=== PATIENT | female | born 1990 | race Caucasian/White ===

== ENCOUNTER → 2017-03-29 | Outpatient (CLI) | payer BC ==
[2017-03-29 14:30] LABS: Basophils # (A) 0.1 k/uL (0-0.2); Basophils % (A) 1 %; CH 22.4; CHCM 29.9; Eosinophils # (A) 0.3 k/uL (0-0.7); Eosinophils % (A) 3 %; HDW 2.75; HGB 12.1 gm/dL (11.4-16.0); Hypochromasia Marked; Luc # (Auto) 0.25; Luc % (Auto) 2; Lymphocytes # (A) 2.8 k/uL (1.0-4.8); Lymphocytes % (A) 26 %; MCH 22.6 pg (25.0-35.0); MCHC 30.2 g/dL (31.0-37.0); Microcytosis Slight; Monocytes # (A) 0.5 k/uL (0-1.0); Monocytes % (A) 5 %; Neutrophils # (A) 6.9 k/uL (1.3-7.7); Neutrophils % (A) 64 %; RBC 5.34 m/uL (3.80-5.40); RDW 13.8 % (11.5-15.5); WBC 10.7 k/uL (3.8-10.6); WBC (Perox) 11.22
[2017-03-29 14:31] LABS: ALT 31 U/L (9-52); AST 16 U/L (14-36); Alkaline Phosphatase 103 U/L (38-126); Anion Gap 9 mmol/L; Blood Urea Nitrogen 9 mg/dL (7-17); Calcium 9.2 mg/dL (8.4-10.2); Carbon Dioxide 25 mmol/L (22-30); Chloride 106 mmol/L (98-107); Glucose 102 mg/dL (74-99); Non-African American GFR(MDRD) >60 (>60 ml/min/1.73 sqM); Sodium 140 mmol/L (137-145); Total Bilirubin 0.2 mg/dL (0.2-1.3); Total Protein 7.6 g/dL (6.3-8.2)
== END | disposition home or self-care (01) ==
LOC: LABWHC1 13:49
PROVIDERS: ATTEND Family Medicine
DX: R19.7 Diarrhea, unspecified (principal)
CPT/HCPCS: 36415; 80053; 85025; 87045; 87046; 87324; 87328; 87329

== ENCOUNTER → 2017-05-03 | Outpatient (CLI) | payer BC ==
[2017-05-06 09:38] LABS: Lyme IgG/IgM 0.1 Index
== END | disposition home or self-care (01) ==
LOC: LABWHC1 10:43
PROVIDERS: ATTEND Otolaryngology
DX: M54.2 Cervicalgia (principal)
CPT/HCPCS: 36415; 85652; 86038; 86618

== ENCOUNTER → 2017-05-17 | Outpatient (CLI) | payer BC | END | disposition home or self-care (01) | LOC: LABWHC1 10:08 | PROVIDERS: ATTEND Family Medicine | DX: E66.9 Obesity, unspecified (principal) | CPT/HCPCS: 36415; 84443 ==

== ENCOUNTER 2017-08-02 20:37 | Emergency (ER) | payer BC ==
[2017-08-02 20:43] VITALS: RESP 18
[2017-08-02] MEDS ORDERED: SODIUM CHLORIDE 0.9% 1,000 ML IV STA (21:00)
--- NOTE | 2017-08-02 21:13 | ED ---
Chest Pain HPI - General Chief Complaint: Chest Pain Stated Complaint: chest pain Time Seen by Provider: 08/02/17 20:44 Source: patient, RN notes reviewed Mode of arrival: ambulatory Limitations: no limitations - History of Present Illness Initial Comments: This is a 27-year-old female who presents to the emergency department with chief complaint of chest pain. Patient states that she developed left-sided chest pain approximately 3 days ago. She describes the pain as constant with radiation to her neck. She states that she has been waking up at night with cold sweats. She also reports that over the last month she has had intermittent headaches. She states that she has also had forgetfulness while speaking. Mother states she sometimes has difficulty getting words out. Mother at bedside states the patient has received labs and a workup for Lyme's disease approximately 6 months ago by her primary care provider and everything came back negative. Patient denies any recent travel, hospitalizations or surgeries. She does state that within the last year she has started taking oral contraceptives. Patient denies fevers or chills, shortness of breath, abdominal pain, nausea or vomiting, diarrhea or constipation, dysuria or hematuria. - Related Data Home Medications Medication Instructions Recorded Confirmed Albuterol Sulfate [Proair Hfa] 1 - 2 puff INHALATION RT-Q6H PRN 12/03/15 Fluticasone Nasal [place] [Flonase 1 spray EA NOSTRIL HS PRN 08/02/17 08/02/17 Nasal [place]] Loratadine [Claritin] 10 mg PO HS PRN 08/02/17 08/02/17 [place] 28 1 tab PO HS 08/02/17 08/02/17 Allergies Allergy/AdvReac Type Severity Reaction Status Date / Time Sulfa (Sulfonamide Allergy Unknown Rash/Hives Verified 08/02/17 21:02 Antibiotics) Review of Systems ROS Statement: Those systems with pertinent positive or pertinent negative responses have been documented in the HPI. ROS Other: All systems not noted in ROS Statement are negative. EKG Findings - EKG Comments: EKG Findings:: 20:49:40. Sinus tachycardia, RSR' or QR pattern in V1 suggests right ventricular conduction delay. Moderate voltage criteria for LVH, may be normal variant. Ventricular rate 111 bpm, DE interval 130, QRS duration 92, QT/ QTC 340/462 Past Medical History Past Medical History: GERD/Reflux Additional Past Medical History / Comment(s): Anemia History of Any Multi-Drug Resistant Organisms: MRSA Date of last positivie culture/infection: 2011 MDRO Source:: throat Past Surgical History: Tonsillectomy Additional Past Surgical History / Comment(s): cyst right wrist Past Psychological History: No Psychological Hx Reported Smoking Status: Current every day smoker Past Alcohol Use History: Occasional Past Drug Use History: None Reported General Exam - General Exam Comments Initial Comments: General: Awake and alert, well-developed; in no apparent distress. HEENT: Head atraumatic, normocephalic. Pupils are equal, round and reactive to light. Extraocular movements intact. Oropharynx moist without erythema or exudate. Neck: Supple. Normal ROM. Cardiovascular: Regular rhythm. Sinus tachycardia. No murmurs, rubs or gallops. Chest symmetrical. Respiratory: Lungs clear to auscultation bilaterally. No wheezes, rales or rhonchi. Normal respiratory effort with no use of accessory muscles. Abdomen: Soft, non-tender, non-distended. No rigidity, rebound or guarding. Normal bowel sounds in all 4 quadrants. Musculoskeletal: Normal ROM, no tenderness, strength 5/5 bilateral upper and lower extremities. Ambulating normally. Skin: [place], warm and dry without rashes or lesions. Neurological: Alert and oriented x3. CN II-XII grossly intact. Speech is fluent and answers are appropriate. No focal neuro deficits. Psychiatric: Normal mood and affect. No overt signs of depression or anxiety noted. Limitations: no limitations Course Vital Signs 08/02/17 08/02/17 20:38 21:43 Temperature 98.3 F 98.2 F Pulse Rate 117 H 102 H Respiratory 18 18 Rate Blood Pressure 142/75 144/65 O2 Sat by Pulse 99 100 Oximetry Chest Pain MDM - MDM This is a 27-year-old female who presents to the emergency department with chief complaint of chest pain for the past 3 days. Patient describes the pain is constant and left-sided with radiation to her neck. CBC, CMP and UA were unremarkable. Patient did have an elevated d-dimer. A CT angio of the chest was obtained and revealed no evidence for a pulmonary embolism. Chest x-ray revealed no acute cardiopulmonary processes. Patient's vital signs are stable and she is in no acute distress. Findings were discussed with her and mother at bedside. Patient states that she has had a recent increase in stress and anxiety in her life. She states that her father recently from cancer and bought his house. Patient will be discharged home at this time. She is in agreement with plan and voices understanding. All questions were answered. Chest x-ray impression: No acute cardiopulmonary process. CT Angio chest impression: No evidence of pulmonary embolism. Cardiomegaly. Disposition Clinical Impression: Atypical chest pain Disposition: HOME SELF-CARE Condition: Good Instructions: Noncardiac Chest Pain (ED), Chest Pain (ED) Additional Instructions: Please follow up with primary care provider within 1-2 days. Return to emergency department if symptoms should worsen or any concerns arise. Referrals: Jorge Luis Bains MD [Primary Care Provider] - 1-2 days Time of Disposition: 22:57
[2017-08-02 21:30] LABS: Basophils # (A) 0.1 k/uL (0-0.2); Basophils % (A) 1 %; Eosinophils # (A) 0.2 k/uL (0-0.7); Eosinophils % (A) 2 %; HCT 37.1 % (34.0-46.0); HGB 11.6 gm/dL (11.4-16.0); Hypochromasia Slight; Lymphocytes % (A) 27 %; MCH 22.4 pg (25.0-35.0); MCHC 31.2 g/dL (31.0-37.0); MCV 71.7 fL (80.0-100.0); Mean Platelet Volume 7.1; Microcytosis Moderate; Monocytes # (A) 0.4 k/uL (0-1.0); Monocytes % (A) 4 %; Neutrophils # (A) 7.3 k/uL (1.3-7.7); Neutrophils % (A) 65 %; Platelet Count 270 k/uL (150-450); RBC 5.17 m/uL (3.80-5.40); RDW 14.8 % (11.5-15.5); WBC 11.1 k/uL (3.8-10.6)
[2017-08-02 21:42] LABS: D-Dimer 1.03 mg/L FEU (<0.60); INR 0.9 (<1.2); Prothrombin Time 9.4 sec (9.0-12.0)
[2017-08-02 21:47] LABS: ALT 20 U/L (9-52); AST 17 U/L (14-36); Albumin 3.6 g/dL (3.5-5.0); Alkaline Phosphatase 87 U/L (38-126); Anion Gap 11 mmol/L; Blood Urea Nitrogen 12 mg/dL (7-17); Carbon Dioxide 26 mmol/L (22-30); Chloride 104 mmol/L (98-107); Glucose 97 mg/dL (74-99); Magnesium 1.7 mg/dL (1.6-2.3); Potassium 4.2 mmol/L (3.5-5.1); Sodium 141 mmol/L (137-145); Total Bilirubin 0.2 mg/dL (0.2-1.3); Total Protein 6.9 g/dL (6.3-8.2)
[2017-08-02] MEDS ORDERED: RX INFO: IV CONTRAST WAS GIVEN 1 EACH MISC MISCELLANE PRN (21:48)
--- NOTE | 2017-08-02 22:13 | XR ---
EXAMINATION TYPE: XR chest 2V DATE OF EXAM: 08/02/2017 COMPARISON: 12/04/2015 HISTORY: Chest pain for 3 days TECHNIQUE: Frontal and lateral views of the chest are obtained. FINDINGS: There is no focal air space opacity, pleural effusion, or pneumothorax seen. The cardiac silhouette size is within normal limits. The osseous structures are intact. IMPRESSION: No acute cardiopulmonary process.
--- NOTE | 2017-08-02 22:23 | CT ---
EXAMINATION TYPE: CT angio chest DATE OF EXAM: 08/02/2017 10:12 PM COMPARISON: NONE HISTORY: Chest pain and difficulty breathing x [address] DLP: 502.6 mGycm Automated exposure control for dose reduction was used. CONTRAST: CTA scan of the thorax is performed with IV Contrast, patient injected with 73 mL of Omnipaque 350, p ulmonary embolism protocol. There are 3-D post processed images.. FINDINGS: Exam is limited slightly by the patient size. There is no pericardial effusion. There is no pleural e ffusion. Heart appears slightly enlarged. There is no evidence of a primary mass. The lungs are clear of infiltrate. There is normal contrast opacification of the pulmonary arteries. I see no filling defects. There is no mediastinal adenopathy. There are no hilar masses. The bony thorax is intact. IMPRESSION: NO EVIDENCE OF PULMONARY EMBOLISM. CARDIOMEGALY.
[2017-08-02 23:33] VITALS: BP 124/58; PULSE 82; TEMP 97.8
== END 2017-08-02 23:31 | disposition home or self-care (01) ==
LOC: EC 20:37
DX: R07.89 Other chest pain (principal); M54.2 Cervicalgia; R51 Headache; F17.200 Nicotine dependence, unspecified, uncomplicated; Z79.3 Long term (current) use of hormonal contraceptives; Z88.2 Allergy status to sulfonamides; Z86.14 Personal history of Methicillin resistant Staphylococcus aureus infection
CPT/HCPCS: 36415; 93005; 85379; 80053; 83735; 84484; 85025; 85610; 85730; 71046; 71275; 99285; 96360; Q9967

== ENCOUNTER → 2018-01-31 | Outpatient (CLI) | payer OTHER ==
--- NOTE | 2018-01-31 10:17 | US ---
EXAMINATION TYPE: US pelvis complete transvag DATE OF EXAM: 01/31/2018 COMPARISON: NONE CLINICAL HISTORY: Pelvic pain R10.2. Midline to LLQ pain, , patient stopped control, large habitus TECHNIQUE: TA/TV. Transabdominal sonographic images of the pelvis were acquired. Transvaginal sono graphic images were medically necessary to better assess the following anatomy: both ovaries Date of LMP: 01/22/2018 EXAM MEASUREMENTS: Uterus: 7.8 x 4.0 x 3.8 cm Endometrial Stripe: 0.6 cm Right Ovary: 2.7 x 2.1 x 1.7 cm Left Ovary: 2.4 x 1.9 x 2.1 cm 1. Uterus: Anteverted wnl 2. Endometrium: wnl 3. Right Ovary: wnl, only seen transabdominally 4. Left Ovary: wnl, only seen transabdominally 5. Bilateral Adnexa: wnl 6. Posterior cul-de-sac: wnl IMPRESSION: 1. No acute process.
== END ==
LOC: RADUSWWP 09:28
PROVIDERS: ATTEND Obstetrics & Gynecology
DX: R10.2 Pelvic and perineal pain (principal)
CPT/HCPCS: 76830; 76856

== ENCOUNTER → 2019-01-09 | Outpatient (CLI) | payer OTHER ==
--- NOTE | 2019-01-09 09:57 | MM ---
Reason for exam: clinical finding. Baseline mammogram. History: Took hormonal contraceptives beginning at age 16. Physical Findings: Nurse Summary: 1.5cm nodule in the right breast at 11 o'clock (nurse maddison). MG 3D Diag Mammo W/Cad BRUNA Bilateral CC and MLO view(s) were taken. The breast tissue is heterogeneously dense. This may lower the sensitivity of mammography. There is a 2.0cm right upper outer quadrant oval circumscribed middle depth mass corresponding to the palpable marker on ultrasound, this appears as a solid mass. No suspicious abnormality on the left. These results were verbally communicated with the patient and result sheet given to the patient on 01/09/19. ASSESSMENT: Suspicious, BI-RAD 4 RECOMMENDATION: Ultrasound core biopsy of the right breast. Called with mammographic findings and has scheduled an appointment for the patient for 02/13/19 at 1:[address] Ruby. Biopsy scheduled for 02/06/19 at 12:20. PRELIMINARY REPORT CALLED AND FAXED TO DR. RUBY ON 01/09/19.
--- NOTE | 2019-01-09 09:58 | USB ---
Reason for exam: clinical finding. History: Took hormonal contraceptives beginning at age 16. US Breast RT Right complete breast ultrasound includes all four quadrants, the retroareolar region and axilla. Finding demonstrates a 2.0 x 2.4 x 1.6cm solid, hypoechoic, vascular lesion at 12 o'clock for which a biopsy is recommended, correlates with mammogram. These results were verbally communicated with the patient and result sheet given to the patient on 01/09/19. ASSESSMENT: Suspicious, BI-RAD 4 RECOMMENDATION: Ultrasound core biopsy of the right breast. Called with mammographic findings and has scheduled an appointment for the patient for 02/13/19 at 1:[address] Ruby. Biopsy scheduled for 02/06/19 at 12:20. PRELIMINARY REPORT CALLED AND FAXED TO DR. RUBY ON 01/09/19.
== END | disposition home or self-care (01) ==
LOC: RADMAMWWP 08:09
PROVIDERS: ATTEND Surgery
DX: R92.8 Other abnormal and inconclusive findings on diagnostic imaging of breast (principal)
CPT/HCPCS: 77062; 77066

== ENCOUNTER → 2019-02-06 | Day surgery (SDC) | payer OTHER ==
[2019-02-06 12:17] VITALS: RESP 16; BMI 51.9
[2019-02-06 13:46] VITALS: BP 131/82; PULSE 76; TEMP 97.8
--- NOTE | 2019-02-06 17:23 | USB ---
EXAMINATION TYPE: US biopsy breast VAD RT DATE OF EXAM: 02/06/2019 CLINICAL HISTORY: 28-year-old female with palpable abnormality, R92.8 Abnormal Mammogram. TECHNIQUE: Ultrasound guided core biopsy of right breast. COMPARISON: 01/09/2019 FINDINGS: The procedure of ultrasound guided core biopsy was explained to the patient. Benefits, alternatives, and risks were discussed. An informed consent was then obtained. The patient was placed in supine positioning for imaging and for the procedure. The overlying skin was prepped and draped in usual sterile fashion. Lidocaine was used as anesthetic into the skin followed by lidocaine/epinephrine into the subcutaneous tissue up to and around the area of concern in the 12:00 right breast. Under ultrasound guidance, a 13-gauge vacuum-assisted mammotome biopsy gun was used to obtain 7 core samples. Following this, a wing clip was left in lesion. The patient tolerated the procedure well without any immediate complication. The patient was kept in the radiology department for short stay after the procedure and then discharged home in stable condition. Given the patient's age, size of the lesion, and clear visualization on mammogram, post biopsy mammogram was deferred. IMPRESSION: Successful, uncomplicated ultrasound guided core biopsy of the palpable 12:00 right breast mass. Fibroadenoma is suspected. Full pathology results to follow. If results are benign, excision can be considered if symptomatic. Pathology Results: Benign RIGHT BREAST, 12:00, ULTRASOUND GUIDED CORE BIOPSY: Benign fibroepithelial lesion with a prominent stromal cellular component. See note. Recommendation Surgical consult, repeat procedure of the right breast. Excision per pathology is recommended phylloides versus fibroadenoma. [facility]
== END ==
LOC: RADUSWWP 11:50
PROVIDERS: ATTEND Surgery
DX: N64.89 Other specified disorders of breast (principal)
CPT/HCPCS: 88305; 19083; A4648

== ENCOUNTER 2019-02-16 06:19 | Day surgery (SDC) | payer OTHER ==
[2019-02-14 18:13] VITALS: BMI 53.2
[~2019-02-16 06:19] MED LIST: DEXAMETHASONE SOD PHOSPHATE 10 MG/ML 1 ML VIAL IV ONE; FAMOTIDINE 20 MG/2 ML VIAL IV PRN; HEPARIN SODIUM,PORCINE 5,000 UNIT/ML 1 ML VIAL SQ ONE; LACTATED RINGERS 1,000 ML IV SCH; ONDANSETRON 4 MG/2 ML VIAL IVP ONE; ONDANSETRON 4 MG/2 ML VIAL IVP PRN; SCOPOLAMINE 1.5MG/72HR PATCH TRANSDERM ONE
[2019-02-16 07:10] LABS: Anisocytosis Slight; Basophils # (A) 0.1 k/uL (0-0.2); Basophils % (A) 1 %; Eosinophils # (A) 0.3 k/uL (0-0.7); Eosinophils % (A) 3 %; HCT 36.4 % (34.0-46.0); HGB 10.7 gm/dL (11.4-16.0); Hypochromasia Marked; Lymphocytes # (A) 3.1 k/uL (1.0-4.8); Lymphocytes % (A) 27 %; MCH 20.4 pg (25.0-35.0); MCHC 29.3 g/dL (31.0-37.0); MCV 69.8 fL (80.0-100.0); Mean Platelet Volume 7.6; Microcytosis Marked; Monocytes # (A) 0.5 k/uL (0-1.0); Monocytes % (A) 4 %; Neutrophils % (A) 62 %; Platelet Count 329 k/uL (150-450); RBC 5.22 m/uL (3.80-5.40); RDW 16.3 % (11.5-15.5); WBC 11.2 k/uL (3.8-10.6)
[2019-02-16] MEDS ORDERED: GLYCOPYRROLATE 0.2 MG/ML 2 ML VIAL ONE (07:51)
[2019-02-16] MEDS ORDERED: PROPOFOL 10 MG/ML 20 ML VIAL IV ONE (07:51)
[2019-02-16] MEDS ORDERED: LIDOCAINE 1% INJ 10MG/ML (20 ML MDV) ONE (07:51)
[2019-02-16] MEDS ORDERED: KETOROLAC 30 MG/ML 1 ML VIAL ONE (07:51)
[2019-02-16] MEDS ORDERED: ROCURONIUM BROMIDE 10 MG/ML 10 ML VIAL IV ONE (07:51)
[2019-02-16] MEDS ORDERED: NEOSTIGMINE 1 MG/ML 10 ML VIAL ONE (07:51)
[2019-02-16] MEDS ORDERED: fentaNYL (PF) 50 MCG/ML 2 ML AMP ONE (07:51)
[2019-02-16] MEDS ORDERED: MIDAZOLAM 2 MG/2 ML VIAL ONE (07:51)
[2019-02-16] MEDS ORDERED: SUCCINYLCHOLINE CHLORIDE VIAL 200 MG/10 ML VIAL IV ONE (07:51)
--- NOTE | 2019-02-16 07:56 | P.GSHP ---
History of Present Illness H&P Date: 02/16/19 Chief Complaint: Right breast mass This a 19-year-old female who previously diagnosed right breast mass. Patient presents today for excisional biopsy. Past Medical History Past Medical History: Asthma, Blood Disorder, GERD/Reflux Additional Past Medical History / Comment(s): Exercise Induced Asthma 2009. An emia. Rt breast mass, tender from recent biopsy. History of Any Multi-Drug Resistant Organisms: MRSA Date of last positivie culture/infection: 2011 MDRO Source:: throat Past Surgical History: Orthopedic Surgery, Tonsillectomy Additional Past Surgical History / Comment(s): Exc cyst right wrist. Past Anesthesia/Blood Transfusion Reactions: No Reported Reaction Smoking Status: Current some day smoker - Past Family History Father Family Medical History: Cancer, Deep Vein Thrombosis (DVT) Additional Family Medical History / Comment(s): Renal CA Medications and Allergies Home Medications Medication Instructions Recorded Confirmed Type Albuterol Sulfate [Proair Hfa] 1 - 2 puff INHALATION RT-Q6H PRN 12/03/15 02/16/19 History Fluticasone Nasal [place] [Flonase 1 spray EA NOSTRIL HS PRN 08/02/17 02/14/19 History Nasal [place]] Loratadine [Claritin] 10 mg PO HS PRN 08/02/17 02/14/19 History Cholecalciferol (Vitamin D3) 2,000 unit PO HS 01/30/19 02/14/19 History [Vitamin D3] Ferrous Sulfate [Feosol] 325 mg PO HS 01/30/19 02/14/19 History Multivitamins, Thera [Multivitamin 1 tab PO HS 01/30/19 02/14/19 History (formulary)] Calcium Carbonate [Tums] 500 - 1,000 mg PO QID PRN 02/14/19 02/14/19 History Ibuprofen [Motrin Ib] 400 mg PO Q8H PRN 02/14/19 02/14/19 History Melatonin 3 mg PO HS PRN 02/14/19 02/14/19 History Allergies Allergy/AdvReac Type Severity Reaction Status Date / Time Sulfa (Sulfonamide Allergy Unknown Rash/Hives Verified 02/16/19 06:48 Antibiotics) Surgical - Exam Vital Signs Temp Pulse Resp BP Pulse Ox 97.8 F 84 16 124/60 99 02/16/19 06:50 02/16/19 06:50 02/16/19 06:50 02/16/19 06:50 02/16/19 06:50 - General well developed, well nourished, no distress - Eyes PERRL - ENT normal pinna - Neck no masses - Respiratory normal expansion - Cardiovascular Rhythm: regular - Abdomen Abdomen: soft, non tender 2 cm right breast mass located 12 o'clock position. Results - Labs 02/16/19 06:52 Abnormal Lab Results - Last 24 Hours (Table) 02/16/19 Range/Units 06:52 WBC 11.2 H (3.8-10.6) k/uL Hgb 10.7 L (11.4-16.0) gm/dL MCV 69.8 L (80.0-100.0) fL MCH 20.4 L (25.0-35.0) pg MCHC 29.3 L (31.0-37.0) g/dL RDW 16.3 H (11.5-15.5) % Assessment and Plan Assessment: Right breast mass. We'll perform excisional biopsy.
[2019-02-16] MEDS ORDERED: LIDOCAINE 1%-EPI 1:100,000 20 ML VIAL SQ ONE ×2 (08:16→08:35)
[2019-02-16] MEDS ORDERED: LACTATED RINGERS 1,000 ML IV ONE (08:17)
[2019-02-16] MEDS: HYDROmorphone 0.5 MG/0.5 ML SYRINGE IVP PRN ×2 (08:56→09:40)
[2019-02-16 08:57] VITALS: TEMP 97.6
[2019-02-16] MEDS ORDERED: diphenhydrAMINE 50 MG/ML 1 ML VIAL IVP ONE (09:04)
[2019-02-16 09:20] VITALS: RESP 16
--- NOTE | 2019-02-16 09:25 | P.OP ---
Date of Procedure: 02/16/19 Preoperative Diagnosis: Right breast mass Postoperative Diagnosis: Defer to pathology Procedure(s) Performed: Excision of right breast mass Anesthesia: ALEXA Surgeon: Morales Ruby Estimated Blood Loss (ml): 5 Condition: stable Disposition: PACU Description of Procedure: The patient was placed on the operative table in supine position she received general anesthesia. Her right breast was prepped and draped usual sterile fashion. The breasts had been previously marked in the preoperative hold area. The skin was anesthetized 1% local Xylocaine. A 15 blade was used to incise the skin. Using blunt and sharp dissection with cautery and the Harmonic scissors the breast mass was excised. The Bovie was used for hemostasis hemostasis. The clip community development aide was used to place clips and the biopsy site. The skin was closed interrupted 3-0 Monocryl suture. Dermabond was applied. Patient top she will was sent to recovery room stable condition.
[2019-02-16] MEDS ORDERED: HYDROcodone/APAP 5-325MG 1 EACH TAB PO ONE (10:38)
[2019-02-16 10:40] VITALS: BP 105/60; PULSE 63
== END 2019-02-16 11:35 | disposition home or self-care (01) ==
LOC: OR 06:19
PROVIDERS: ATTEND Surgery
DX: D24.1 Benign neoplasm of right breast (principal); N63.10 Unspecified lump in the right breast, unspecified quadrant; J45.990 Exercise induced bronchospasm; K21.9 Gastro-esophageal reflux disease without esophagitis; F17.200 Nicotine dependence, unspecified, uncomplicated; Z86.14 Personal history of Methicillin resistant Staphylococcus aureus infection; Z80.51 Family history of malignant neoplasm of kidney; Z84.89 Family history of other specified conditions; Z79.899 Other long term (current) drug therapy; Z88.2 Allergy status to sulfonamides
CPT/HCPCS: 81025; 88305; 85025; 19120; J2250; J0330; J1200; J1644; J1100; J2710; J0690; J2405; J2001; J3010; J1885; J2704; J1170

== ENCOUNTER → 2019-02-18 | Outpatient (CLI) | payer OTHER ==
[2019-02-18 11:37] LABS: Anisocytosis Slight; HCT 32.9 % (34.0-46.0); HGB 9.4 gm/dL (11.4-16.0); Hypochromasia Marked; MCH 20.5 pg (25.0-35.0); MCHC 28.6 g/dL (31.0-37.0); MCV 71.6 fL (80.0-100.0); Mean Platelet Volume 7.2; Microcytosis Moderate; Platelet Count 262 k/uL (150-450); RDW 16.4 % (11.5-15.5); WBC 10.1 k/uL (3.8-10.6)
[2019-02-18 11:49] LABS: D-Dimer 0.98 mg/L FEU (<0.60); INR 0.9 (<1.2); Prothrombin Time 9.9 sec (9.0-12.0)
[2019-02-18 11:55] LABS: ALT 20 U/L (9-52); AST 17 U/L (14-36); African American GFR (CKD) >90 (>60 ml/min/1.73 sqM); Albumin 3.7 g/dL (3.5-5.0); Albumin/Globulin Ratio 1.1; Alkaline Phosphatase 74 U/L (38-126); Anion Gap 10 mmol/L; Blood Urea Nitrogen 13 mg/dL (7-17); Calcium 8.6 mg/dL (8.4-10.2); Carbon Dioxide 26 mmol/L (22-30); Chloride 105 mmol/L (98-107); Globulin 3.5 g/dL; Glucose 77 mg/dL (74-99); Potassium 3.8 mmol/L (3.5-5.1); Sodium 141 mmol/L (137-145); Total Bilirubin 0.3 mg/dL (0.2-1.3); Total Protein 7.2 g/dL (6.3-8.2)
[2019-02-18 13:22] LABS: Erythrocyte Sedimentation Rate 34 mm/hr (0-20)
== END | disposition home or self-care (01) ==
LOC: LABMAIN 11:11
PROVIDERS: ATTEND Family Medicine
DX: H11.33 Conjunctival hemorrhage, bilateral (principal); R07.9 Chest pain, unspecified; Z79.01 Long term (current) use of anticoagulants
CPT/HCPCS: 36415; 80053; 85027; 85379; 85610; 85652

== ENCOUNTER 2019-02-20 15:44 | Emergency (ER) | payer OTHER ==
[2019-02-20 16:15] VITALS: BP 138/88
--- NOTE | 2019-02-20 17:49 | ED ---
General Adult HPI - General Chief complaint: Headache Stated complaint: H/A, PRESSURE LS, BLOOD IN EYE SENT BY DR COLUNGA Time Seen by Provider: 02/20/19 17:13 Source: patient Mode of arrival: ambulatory Limitations: no limitations - History of Present Illness Initial comments: Patient is a 28-year-old female presenting to emergency Department with multiple chief complaints. Patient reports she had a lump removal procedure on Tuesday and after discharge she reports that she went to sleep, woke up with a headache and bilateral hyphema. Patient reports she went to the in home sales consultant who determined she had elevated pressure in the left eye and gave her eyedrops. Patient denies blurry vision at this time. However, patient reports she developed left-sided chest pain without any radiation. Patient reports the pain is exacerbated with full inhalation. Patient denies any abdominal but does report back pain that seems to be exacerbated with specific anatomical positions. - Related Data Home Medications Medication Instructions Recorded Confirmed Albuterol Sulfate [Proair Hfa] 1 - 2 puff INHALATION RT-Q6H PRN 12/03/15 02/20/19 Fluticasone Nasal [place] [Flonase 1 spray EA NOSTRIL HS PRN 08/02/17 02/20/19 Nasal [place]] Loratadine [Claritin] 10 mg PO HS PRN 08/02/17 02/20/19 Cholecalciferol (Vitamin D3) 2,000 unit PO HS 01/30/19 02/20/19 [Vitamin D3] Ferrous Sulfate [Feosol] 325 mg PO HS 01/30/19 02/20/19 Multivitamins, Thera [Multivitamin 1 tab PO HS 01/30/19 02/20/19 (formulary)] Calcium Carbonate [Tums] 500 - 1,000 mg PO QID PRN 02/14/19 02/20/19 Ibuprofen [Motrin Ib] 600 mg PO Q8H PRN 02/14/19 02/20/19 Melatonin 3 mg PO HS PRN 02/14/19 02/20/19 Docusate [Colace] 100 mg PO BID PRN 02/20/19 02/20/19 Previous Rx's Medication Instructions Recorded HYDROcodone/APAP 5-325MG [[place] 1 tab PO Q6HR PRN #10 tab 02/16/19 5-325] Allergies Allergy/AdvReac Type Severity Reaction Status Date / Time Sulfa (Sulfonamide Allergy Unknown Rash/Hives Verified 02/20/19 17:49 Antibiotics) Review of Systems ROS Statement: Those systems with pertinent positive or pertinent negative responses have been documented in the HPI. ROS Other: All systems not noted in ROS Statement are negative. Past Medical History Past Medical History: Asthma, Blood Disorder, GERD/Reflux Additional Past Medical History / Comment(s): Exercise Induced Asthma 2009. Anemia. Rt breast mass, tender from recent biopsy. History of Any Multi-Drug Resistant Organisms: MRSA Date of last positivie culture/infection: 2011 MDRO Source:: throat Past Surgical History: Orthopedic Surgery, Tonsillectomy Additional Past Surgical History / Comment(s): Exc cyst right wrist. Past Anesthesia/Blood Transfusion Reactions: No Reported Reaction Past Psychological History: Depression Smoking Status: Current some day smoker - Past Family History Father Family Medical History: Cancer, Deep Vein Thrombosis (DVT) Additional Family Medical History / Comment(s): Renal CA General Exam Limitations: no limitations General appearance: alert, in no apparent distress Head exam: Present: atraumatic, normocephalic, normal inspection Eye exam: Present: PERRL, EOMI. Absent: normal appearance (Bilateral hyphema) Pupils: Present: normal accommodation, other (Right eye is more dilated versus left.) ENT exam: Present: normal exam, mucous membranes moist, normal external ear exam Neck exam: Present: normal inspection, full ROM Respiratory exam: Present: normal lung sounds bilaterally Cardiovascular Exam: Present: regular rate, normal rhythm, normal heart sounds Extremities exam: Present: normal inspection, full ROM, normal capillary refill, other ( +2 ulnar and radial pulses bilaterally. +2 dorsalis pedis and posterior tibialis bilaterally.). Absent: tenderness, pedal edema, joint swelling, calf tenderness (Negative Homans bilaterally.) Back exam: Present: normal inspection, full ROM Neurological exam: Present: alert, oriented X3 Psychiatric exam: Present: normal affect, normal mood Skin exam: Present: warm, intact, normal color Course Vital Signs 02/20/19 02/20/19 16:07 20:30 Temperature 98.6 F 97.9 F Pulse Rate 75 88 Respiratory 18 16 Rate Blood Pressure 138/88 O2 Sat by Pulse 100 98 Oximetry Medical Decision Making - Medical Decision Making Patient is a 28-year-old female presenting to emergency Department with a chief complaint of headache, chest pain shortness of breath and hyphema. Patient had a procedure 4 days ago to remove a lump from the left breast. Several hours in the same date of discharge patient developed bilateral eye hyphema. Patient was evaluated by an in home sales consultant who prescribed her just to decrease the pressure in the left eye. Patient reports a frontal headache without radiation. Patient reports it was a gradual onset and it is not the worse headache in her life. Patient also reports 2 days ago she developed left-sided chest pain is exacerbated with full inspiration. On Tuesday she went to see who is the surgeon who obtain blood work and d-dimer. D-dimer was elevated at 0.98. No imaging was ordered at that time. On reevaluation patient does have an elevated d-dimer of 0.7 a high rate is decreased from 2 days ago. Patient had a CT of the chest to rule out a PE. CT is negative. Patient also had CT of the brain and it was unremarkable. Case was discussed with Dr. Cole requested the patient be discharged and she can follow with him outpatient. Patient was offered analgesia however she declined. Strict return parameters were thoroughly discussed the patient is understanding and agreeable. Case discussed with physician. - Lab Data Result diagrams: 02/20/19 19:02/20/19 19: Lab Results 02/20/19 02/20/19 02/20/19 Range/Units 19:01 19:01 19:01 WBC 11.6 H (3.8-10.6) k/uL RBC 5.37 (3.80-5.40) m/uL Hgb 11.2 L (11.4-16.0) gm/dL Hct 37.6 (34.0-46.0) % MCV 70.1 L (80.0-100.0) fL MCH 20.8 L (25.0-35.0) pg MCHC 29.7 L (31.0-37.0) g/dL RDW 15.6 H (11.5-15.5) % Plt Count 302 (150-450) k/uL Neutrophils % 65 % Lymphocytes % 26 % Monocytes % 4 % Eosinophils % 3 % Basophils % 0 % Neutrophils # 7.6 (1.3-7.7) k/uL Lymphocytes # 3.0 (1.0-4.8) k/uL Monocytes # 0.5 (0-1.0) k/uL Eosinophils # 0.3 (0-0.7) k/uL Basophils # 0.1 (0-0.2) k/uL Hypochromasia Marked Microcytosis Moderate D-Dimer 0.76 H (<0.60) mg/L FEU Sodium 139 (137-145) mmol/L Potassium 4.7 (3.5-5.1) mmol/L Chloride 104 (98-107) mmol/L Carbon Dioxide 25 (22-30) mmol/L Anion Gap 10 mmol/L BUN 10 (7-17) mg/dL Creatinine 0.75 (0.52-1.04) mg/dL Est GFR (CKD-EPI)AfAm >90 (>60 ml/min/1.73 sqM) Est GFR (CKD-EPI)NonAf >90 (>60 ml/min/1.73 sqM) Glucose 84 (74-99) mg/dL Calcium 9.7 (8.4-10.2) mg/dL Total Bilirubin 0.3 (0.2-1.3) mg/dL AST 21 (14-36) U/L ALT 34 (9-52) U/L Alkaline Phosphatase 103 (38-126) U/L Total Protein 8.3 H (6.3-8.2) g/dL Albumin 4.3 (3.5-5.0) g/dL Disposition Clinical Impression: Headache, Hyphema, bilateral, Chest pain Disposition: HOME SELF-CARE Condition: Stable Instructions (If sedation given, give patient instructions): Acute Headache (ED) Additional Instructions: Please follow up with . Please return to emergency department if symptoms worsen. Is patient prescribed a controlled substance at d/c from ED?: No Referrals: Jorge Luis Bains MD [Primary Care Provider] - 1-2 days Time of Disposition: 20:05
--- NOTE | 2019-02-20 19:36 | CT ---
EXAMINATION TYPE: CT brain wo con DATE OF EXAM: 02/20/2019 COMPARISON: None HISTORY: Patient woke up with blood in eyes this morning after having surgery yesterday. CT DLP: 1058.4 mGycm. Automated Exposure Control for Dose Reduction was Utilized. TECHNIQUE: CT scan of the head is performed without contrast. FINDINGS: Ventricles have normal size. There is no mass effect nor midline shift. There is no sign of intracranial hemorrhage. Calvarium is intact. IMPRESSION: Negative CT scan of the brain.
--- NOTE | 2019-02-20 19:39 | CT ---
EXAMINATION TYPE: CT chest angio for PE DATE OF EXAM: 02/20/2019 COMPARISON: 08/02/2017 HISTORY: SOB after lumpectomy in breast. CT DLP: 918.9 mGycm Automated exposure control for dose reduction was used. CONTRAST: CT Chest for pulmonary embolism performed with with IV Contrast, patient injected with 100 mL of Isov ue 370. There are 3-D post processed images. FINDINGS: \There is diffuse pulmonary interstitial edema. Heart appears enlarged. There are no hilar masses. Th ere is normal contrast opacification of the pulmonary arteries. I see no filling defect. There is no evidence of aortic dissection. Ascending aorta measures 3.6 cm. There is no aneurysm. There is no per icardial effusion. There is no pleural fluid. There is degenerative spurring in the thoracic spine. I see no bony destructive process. IMPRESSION: No evidence of pulmonary embolism. There is some diffuse pulmonary interstitial edema that is a earl e compared to last exam. Cardiomegaly that is increased compared to last exam. This could relate to a cute heart failure.
[2019-02-20 19:48] LABS: ALT 34 U/L (9-52); AST 21 U/L (14-36); African American GFR (CKD) >90 (>60 ml/min/1.73 sqM); Albumin 4.3 g/dL (3.5-5.0); Alkaline Phosphatase 103 U/L (38-126); Anion Gap 10 mmol/L; Blood Urea Nitrogen 10 mg/dL (7-17); Calcium 9.7 mg/dL (8.4-10.2); Carbon Dioxide 25 mmol/L (22-30); Chloride 104 mmol/L (98-107); Glucose 84 mg/dL (74-99); Potassium 4.7 mmol/L (3.5-5.1); Sodium 139 mmol/L (137-145); Total Bilirubin 0.3 mg/dL (0.2-1.3); Total Protein 8.3 g/dL (6.3-8.2)
[2019-02-20 19:57] LABS: Basophils # (A) 0.1 k/uL (0-0.2); Basophils % (A) 0 %; Eosinophils # (A) 0.3 k/uL (0-0.7); Eosinophils % (A) 3 %; HCT 37.6 % (34.0-46.0); HGB 11.2 gm/dL (11.4-16.0); Hypochromasia Marked; Lymphocytes % (A) 26 %; MCH 20.8 pg (25.0-35.0); MCHC 29.7 g/dL (31.0-37.0); MCV 70.1 fL (80.0-100.0); Mean Platelet Volume 6.2; Microcytosis Moderate; Monocytes # (A) 0.5 k/uL (0-1.0); Monocytes % (A) 4 %; Neutrophils # (A) 7.6 k/uL (1.3-7.7); Neutrophils % (A) 65 %; Platelet Count 302 k/uL (150-450); RBC 5.37 m/uL (3.80-5.40); RDW 15.6 % (11.5-15.5); WBC 11.6 k/uL (3.8-10.6)
[2019-02-20 20:33] VITALS: PULSE 88; RESP 16; TEMP 97.9
== END 2019-02-20 20:30 | disposition home or self-care (01) ==
LOC: EC 15:44
DX: H21 Other disorders of iris and ciliary body (principal); R51 Headache; R07.9 Chest pain, unspecified; R07.1 Chest pain on breathing; R06.02 Shortness of breath; M54.9 Dorsalgia, unspecified; D64.9 Anemia, unspecified; Z88.2 Allergy status to sulfonamides; Z79.899 Other long term (current) drug therapy; Z86.14 Personal history of Methicillin resistant Staphylococcus aureus infection
CPT/HCPCS: 36415; 93005; 85379; 80053; 85025; 70450; 71275; 99284; Q9967

== ENCOUNTER → 2020-09-09 | Outpatient (CLI) | payer BC ==
[2020-09-09 11:48] LABS: Amorphous Sediment,Urine Rare /hpf; Appearance,Urine Cloudy (Clear); Bilirubin,Urine Negative (Negative); Blood,Urine Negative (Negative); Color,Urine Yellow; Glucose,Urine (UA) Negative (Negative); Ketones,Urine Negative (Negative); Leukocyte Esterase,Urine Small (Negative); Mucus,Urine Rare /hpf; Nitrite,Urine Negative (Negative); Protein,Urine Trace (Negative); RBC,Urine 1 /hpf (0-5); Squamous Epithelial Cell,Urine 12 /hpf (0-4); Urobilinogen,Urine <2.0 mg/dL (<2.0); WBC,Urine 5 /hpf (0-5)
[2020-09-09 16:57] LABS: HCT 39.3 % (37.2-46.3); MCH 19.8 pg (27.0-32.0); MCV 70.7 fL (80.0-97.0); Mean Platelet Volume 11.6 fL (9.5-12.2); Platelet Count 347 X 10*3/uL (140-440); RBC 5.56 X 10*6/uL (4.10-5.20); RDW 17.2 % (11.5-14.5); WBC 9.92 X 10*3/uL (4.50-10.00)
[2020-09-09 17:46] LABS: Basophils # (A) 0.07 X 10*3/uL (0.00-0.10); Basophils % (A) 0.7 %; Eosinophils # (A) 0.21 X 10*3/uL (0.04-0.35); Eosinophils % (A) 2.1 %; Lymphocytes # (A) 2.42 X 10*3/uL (0.90-5.00); Lymphocytes % (A) 24.4 %; Microcytosis (M) 2+; Monocytes # (A) 0.48 X 10*3/uL (0.20-1.00); Monocytes % (A) 4.8 %; Neutrophils # (A) 6.71 X 10*3/uL (1.80-7.70); Neutrophils % (A) 67.7 %
[2020-09-09 19:55] LABS: Erythrocyte Sedimentation Rate 28 mm/Hr (0-20)
[2020-09-10 00:43] LABS: % Iron Saturation 6.23 (12.00-45.00); African American GFR (CKD) 113.9 (60.0-200.0); Albumin 4.4 g/dL (3.80-4.90); Albumin/Globulin Ratio 1.63 (1.60-3.17); Anion Gap 9.4 mmol/L (4.00-12.00); BUN/Creat Ratio 12.5 Ratio (12.00-20.00); C Reactive Protein 1.7 mg/dL (0.0-0.8); Calcium 9.1 mg/dL (8.7-10.3); Carbon Dioxide 22.6 mmol/L (21.6-31.8); Globulin 2.7 g/dL (1.6-3.3); Non-African American GFR(CKD) 98.2 (60.0-200.0); Potassium 4.6 mmol/L (3.5-5.5); Total Bilirubin 0.4 mg/dL (0.3-1.2); Total Protein 7.1 g/dL (6.2-8.2)
[2020-09-10 00:51] LABS: T4, Free (Free Thyroxine) 1.2 ng/dL (0.80-1.80)
[2020-09-10 01:08] LABS: Ferritin 9.6 ng/mL (10.0-291.0); Folate, Serum 12.7 ng/mL
== END | disposition home or self-care (01) ==
LOC: LABWHC1 10:38
PROVIDERS: ATTEND Physician Assistant
DX: M62.81 Muscle weakness (generalized) (principal); D64.9 Anemia, unspecified; R53.81 Other malaise
CPT/HCPCS: 36415; 80053; 81001; 82306; 82550; 82607; 82728; 82746; 83540; 83550; 84439; 84443; 85025; 85652; 86140

== ENCOUNTER 2020-12-20 08:42 | Observation (INO) | payer BC ==
--- NOTE | 2020-12-20 09:05 | ED ---
General Adult HPI - General Source: patient Mode of arrival: ambulatory Limitations: no limitations <Ashley Carranza - Last Filed: 12/20/20 10:14> <Glen Marcos - Last Filed: 12/20/20 11:38> - General Chief complaint: Recheck/Abnormal Lab/Rx Stated complaint: tongue swelling, SOB Time Seen by Provider: 12/20/20 08:48 - History of Present Illness Initial comments: 30 year-old female patient presents to the emergency department today for evaluation of shortness of breath, tongue swelling, and body aches. She states she woke with symptoms this morning. Feels like she cannot catch her breath. Denies any chest pain. States her whole body hurts and is achy. States that she has woke from sleep with tongue swelling in the past. Denies any leg swelling or pain. Denies recent travel. Denies current use of control. Does smoke cigarettes. Denies fever or chills. Denies any cough or congestion. Denies any recent trauma or head injury. Patient denies any recent rash, abdominal pain, nausea, vomiting, diarrhea, constipation, back pain, numbness, tingling, dizziness, weakness, hematuria, dysuria, urinary urgency, urinary frequency, headache, visual changes, or any other complaints. Denies chance of . (Ashley Carranza) - Related Data Home Medications Medication Instructions Recorded Confirmed Melatonin 3 mg PO HS PRN 02/14/19 12/20/20 Famotidine [Pepcid AC] 10 mg PO BID PRN 12/20/20 12/20/20 Allergies Allergy/AdvReac Type Severity Reaction Status Date / Time Sulfa (Sulfonamide Allergy Unknown Rash/Hives Verified 12/20/20 11:21 Antibiotics) Review of Systems ROS Other: All systems not noted in ROS Statement are negative. <Ashley Carranza - Last Filed: 12/20/20 10:14> ROS Other: All systems not noted in ROS Statement are negative. <Glen Marcos - Last Filed: 12/20/20 11:38> ROS Statement: Those systems with pertinent positive or pertinent negative responses have been documented in the HPI. Past Medical History Past Medical History: Asthma, Blood Disorder, GERD/Reflux Additional Past Medical History / Comment(s): Exercise Induced Asthma 2009. Anemia. Rt breast mass, tender from recent biopsy. History of Any Multi-Drug Resistant Organisms: MRSA Date of last positivie culture/infection: 2011 MDRO Source:: throat Past Surgical History: Orthopedic Surgery, Tonsillectomy Additional Past Surgical History / Comment(s): Exc cyst right wrist. Past Anesthesia/Blood Transfusion Reactions: No Reported Reaction Past Psychological History: Depression Smoking Status: Current every day smoker Past Alcohol Use History: Occasional Past Drug Use History: None Reported - Past Family History Father Family Medical History: Cancer, Deep Vein Thrombosis (DVT) Additional Family Medical History / Comment(s): Renal CA <Ashley Carranza - Last Filed: 12/20/20 10:14> General Exam Limitations: no limitations General appearance: alert, in no apparent distress, other (Physical well- developed, well-nourished adult female patient in mild distress. Vital signs up on presentation are temperature 97.6F, pulse 103, respirations 18, blood pressure 132/90, pulse ox 95% on room air.) ENT exam: Present: normal oropharynx, mucous membranes moist, other (tongue appears swollen, bleeding/injury noted to the tip of the tongue) Respiratory exam: Present: normal lung sounds bilaterally. Absent: respiratory distress, wheezes, rales, rhonchi, stridor Cardiovascular Exam: Present: normal rhythm, tachycardia, normal heart sounds. Absent: systolic murmur, diastolic murmur, rubs, gallop, clicks Neurological exam: Present: alert, oriented X3, CN II-XII intact Psychiatric exam: Present: normal affect, normal mood Skin exam: Present: warm, dry, intact, normal color, petechiae (over the face and neck). Absent: rash <Ashley Carranza M - Last Filed: 12/20/20 10:14> Course Vital Signs 12/20/20 12/20/20 08:43 11:14 Temperature 97.6 F Pulse Rate 103 H Respiratory 18 18 Rate Blood Pressure 132/90 O2 Sat by Pulse 95 Oximetry EKG Findings - EKG Comments: EKG Findings:: EKG obtained at 08 53 shows sinus rhythm with a market sinus arrhythmia. Ventricular is 97, NE interval 142, QR mormonism 92, QT 370, QTC 469. There is some ST depression noted in lead 3 which appears consistent with previous EKG. <Ashley Carranza - Last Filed: 12/20/20 10:14> Medical Decision Making - Lab Data Result diagrams: 12/20/20 09:15 12/20/20 09:15 <Ashley Carranza - Last Filed: 12/20/20 10:14> - Lab Data Result diagrams: 12/20/20 09:15 12/20/20 09:15 <Glen Marcos - Last Filed: 12/20/20 11:38> - Medical Decision Making 30-year-old female patient presented to the emergency department today for evaluation of shortness of breath, body pain, and tongue swelling. Physical examination did reveal traumatic injury to the tongue. Lungs are clear to auscultation with good air movement. Patient did have petechiae noted over the face and neck. Labs reviewed and showed elevated lactic acid at 2.6. Concerning his patient possibly had seizure while sleeping. Did add CT of the brain. Remainder of labs are pending, radiologist read on the CT is pending. Care will be handed off to Glen Vazquez to manage patient until disposition. Dr. Summers is aware of case. (Ashley Carranza) Patient was signed off to me by HEATHER Ramirez. I personally evaluated the patient and she has mild petechia along the neck. She also has some ecchymosis noted on the anterior lateral aspect of the tongue, bilaterally. Laboratory work shows relatively benign CBC. Coags are within normal limits. Elevated d-dimer, however this appears to be elevated multiple times while she was here. I did offer CT imaging to rule out a pulmonary embolism, she declined. States she's had multiple CTs with no acute findings. Chest x-ray shows no acute findings. CT of the brain is unremarkable. Troponin within normal limits. She does have an elevated lactic acid of 2.4. Considering the symptoms of biting on the tongue and elevated lactic acid, there is a concern for possible seizure like activity. Patient has no history of seizures and is not currently taking any medications. She is not . Coumadin is negative. Urine drug screen positive for marijuana. UA is unremarkable. I spoke to Dr. Barrow who will admit the patient for medical management. Case was also discussed with Dr. Summers. Neurology consult. (Glen Macros) - Lab Data Lab Results 12/20/20 12/20/2012/20/21 Range/Units 09:15 09:15 09:15 WBC 9.8 (3.8-10.6) k/uL RBC 5.36 (3.80-5.40) m/uL Hgb 11.5 (11.4-16.0) gm/dL Hct 37.1 (34.0-46.0) % MCV 69.2 L (80.0-100.0) fL MCH 21.4 L (25.0-35.0) pg MCHC 31.0 (31.0-37.0) g/dL RDW 16.2 H (11.5-15.5) % Plt Count 322 (150-450) k/uL MPV 7.9 Neutrophils % 67 % Lymphocytes % 23 % Monocytes % 4 % Eosinophils % 2 % Basophils % 1 % Neutrophils # 6.6 (1.3-7.7) k/uL Lymphocytes # 2.3 (1.0-4.8) k/uL Monocytes # 0.4 (0-1.0) k/uL Eosinophils # 0.2 (0-0.7) k/uL Basophils # 0.1 (0-0.2) k/uL Hypochromasia Marked Anisocytosis Slight Microcytosis Marked PT 10.0 (9.0-12.0) sec INR 0.9 (<1.2) APTT 22.2 (22.0-30.0) sec D-Dimer 0.65 H (<0.60) mg/L FEU Sodium 140 (137-145) mmol/L Potassium 4.0 (3.5-5.1) mmol/L Chloride 107 (98-107) mmol/L Carbon Dioxide 25 (22-30) mmol/L Anion Gap 8 mmol/L BUN 8 (7-17) mg/dL Creatinine 0.75 (0.52-1.04) mg/dL Est GFR (CKD-EPI)AfAm >90 (>60 ml/min/1.73 sqM) Est GFR (CKD-EPI)NonAf >90 (>60 ml/min/1.73 sqM) Glucose 102 H (74-99) mg/dL Plasma Lactic Acid Carrington (0.7-2.0) mmol/L Calcium 9.1 (8.4-10.2) mg/dL Total Bilirubin 0.3 (0.2-1.3) mg/dL AST 24 (14-36) U/L ALT 21 (4-34) U/L Alkaline Phosphatase 88 (38-126) U/L Troponin I (0.000-0.034) ng/mL Total Protein 7.2 (6.3-8.2) g/dL Albumin 4.0 (3.5-5.0) g/dL Urine Color Urine Appearance (Clear) Urine pH (5.0-8.0) Ur Specific [place] (1.001-1.035) Urine Protein (Negative) Urine Glucose (UA) (Negative) Urine Ketones (Negative) Urine Blood (Negative) Urine Nitrite (Negative) Urine Bilirubin (Negative) Urine Urobilinogen (<2.0) mg/dL Ur Leukocyte Esterase (Negative) Urine HCG, Qual (Not Detectd) Urine Opiates Screen (NotDetected) Ur Oxycodone Screen (NotDetected) Urine Methadone Screen (NotDetected) Ur Propoxyphene Screen (NotDetected) Ur Barbiturates Screen (NotDetected) U Tricyclic Antidepress (NotDetected) Ur Phencyclidine Scrn (NotDetected) Ur Amphetamines Screen (NotDetected) U Methamphetamines Scrn (NotDetected) U Benzodiazepines Scrn (NotDetected) Urine Cocaine Screen (NotDetected) U Marijuana (THC) Screen (NotDetected) Coronavirus (PCR) (Not Detectd) 12/20/20 12/20/20 12/20/20 Range/Units 09:15 09:15 09:15 WBC (3.8-10.6) k/uL RBC (3.80-5.40) m/uL Hgb (11.4-16.0) gm/dL Hct (34.0-46.0) % MCV (80.0-100.0) fL MCH (25.0-35.0) pg MCHC (31.0-37.0) g/dL RDW (11.5-15.5) % Plt Count (150-450) k/uL MPV Neutrophils % % Lymphocytes % % Monocytes % % Eosinophils % % Basophils % % Neutrophils # (1.3-7.7) k/uL Lymphocytes # (1.0-4.8) k/uL Monocytes # (0-1.0) k/uL Eosinophils # (0-0.7) k/uL Basophils # (0-0.2) k/uL Hypochromasia Anisocytosis Microcytosis PT (9.0-12.0) sec INR (<1.2) APTT (22.0-30.0) sec D-Dimer (<0.60) mg/L FEU Sodium (137-145) mmol/L Potassium (3.5-5.1) mmol/L Chloride (98-107) mmol/L Carbon Dioxide (22-30) mmol/L Anion Gap mmol/L BUN (7-17) mg/dL Creatinine (0.52-1.04) mg/dL Est GFR (CKD-EPI)AfAm (>60 ml/min/1.73 sqM) Est GFR (CKD-EPI)NonAf (>60 ml/min/1.73 sqM) Glucose (74-99) mg/dL Plasma Lactic Acid Carrington 2.4 H* (0.7-2.0) mmol/L Calcium (8.4-10.2) mg/dL Total Bilirubin (0.2-1.3) mg/dL AST (14-36) U/L ALT (4-34) U/L Alkaline Phosphatase (38-126) U/L Troponin I <0.012 (0.000-0.034) ng/mL Total Protein (6.3-8.2) g/dL Albumin (3.5-5.0) g/dL Urine Color Urine Appearance (Clear) Urine pH (5.0-8.0) Ur Specific [place] (1.001-1.035) Urine Protein (Negative) Urine Glucose (UA) (Negative) Urine Ketones (Negative) Urine Blood (Negative) Urine Nitrite (Negative) Urine Bilirubin (Negative) Urine Urobilinogen (<2.0) mg/dL Ur Leukocyte Esterase (Negative) Urine HCG, Qual Not Detected (Not Detectd) Urine Opiates Screen (NotDetected) Ur Oxycodone Screen (NotDetected) Urine Methadone Screen (NotDetected) Ur Propoxyphene Screen (NotDetected) Ur Barbiturates Screen (NotDetected) U Tricyclic Antidepress (NotDetected) Ur Phencyclidine Scrn (NotDetected) Ur Amphetamines Screen (NotDetected) U Methamphetamines Scrn (NotDetected) U Benzodiazepines Scrn (NotDetected) Urine Cocaine Screen (NotDetected) U Marijuana (THC) Screen (NotDetected) Coronavirus (PCR) (Not Detectd) 12/20/20 12/20/20 12/20/20 Range/Units 09:15 09:15 09:15 WBC (3.8-10.6) k/uL RBC (3.80-5.40) m/uL Hgb (11.4-16.0) gm/dL Hct (34.0-46.0) % MCV (80.0-100.0) fL MCH (25.0-35.0) pg MCHC (31.0-37.0) g/dL RDW (11.5-15.5) % Plt Count (150-450) k/uL MPV Neutrophils % % Lymphocytes % % Monocytes % % Eosinophils % % Basophils % % Neutrophils # (1.3-7.7) k/uL Lymphocytes # (1.0-4.8) k/uL Monocytes # (0-1.0) k/uL Eosinophils # (0-0.7) k/uL Basophils # (0-0.2) k/uL Hypochromasia Anisocytosis Microcytosis PT (9.0-12.0) sec INR (<1.2) APTT (22.0-30.0) sec D-Dimer (<0.60) mg/L FEU Sodium (137-145) mmol/L Potassium (3.5-5.1) mmol/L Chloride (98-107) mmol/L Carbon Dioxide (22-30) mmol/L Anion Gap mmol/L BUN (7-17) mg/dL Creatinine (0.52-1.04) mg/dL Est GFR (CKD-EPI)AfAm (>60 ml/min/1.73 sqM) Est GFR (CKD-EPI)NonAf (>60 ml/min/1.73 sqM) Glucose (74-99) mg/dL Plasma Lactic Acid Carrington (0.7-2.0) mmol/L Calcium (8.4-10.2) mg/dL Total Bilirubin (0.2-1.3) mg/dL AST (14-36) U/L ALT (4-34) U/L Alkaline Phosphatase (38-126) U/L Troponin I (0.000-0.034) ng/mL Total Protein (6.3-8.2) g/dL Albumin (3.5-5.0) g/dL Urine Color Yellow Urine Appearance Clear (Clear) Urine pH 7.5 (5.0-8.0) Ur Specific [place] 1.021 (1.001-1.035) Urine Protein Trace H (Negative) Urine Glucose (UA) Negative (Negative) Urine Ketones Negative (Negative) Urine Blood Negative (Negative) Urine Nitrite Negative (Negative) Urine Bilirubin Negative (Negative) Urine Urobilinogen <2.0 (<2.0) mg/dL Ur Leukocyte Esterase Negative (Negative) Urine HCG, Qual (Not Detectd) Urine Opiates Screen Not Detected (NotDetected) Ur Oxycodone Screen Not Detected (NotDetected) Urine Methadone Screen Not Detected (NotDetected) Ur Propoxyphene Screen Not Detected (NotDetected) Ur Barbiturates Screen Not Detected (NotDetected) U Tricyclic Antidepress Not Detected (NotDetected) Ur Phencyclidine Scrn Not Detected (NotDetected) Ur Amphetamines Screen Not Detected (NotDetected) U Methamphetamines Scrn Not Detected (NotDetected) U Benzodiazepines Scrn Not Detected (NotDetected) Urine Cocaine Screen Not Detected (NotDetected) U Marijuana (THC) Screen Detected H (NotDetected) Coronavirus (PCR) Not Detected (Not Detectd) Disposition <Ashley Carranza - Last Filed: 12/20/20 10:14> Is patient prescribed a controlled substance at d/c from ED?: No Time of Disposition: 11:36 <Glen Marcos - Last Filed: 12/20/20 11:38> Clinical Impression: Tongue biting, Petechiae, Acute encephalopathy Disposition: ADMITTED IP TO THIS HOSP Condition: Fair Referrals: Jorge Luis Bains MD [Primary Care Provider] - 1-2 days
[2020-12-20 09:25] LABS: Anisocytosis Slight; Basophils # (A) 0.1 k/uL (0-0.2); Basophils % (A) 1 %; Eosinophils # (A) 0.2 k/uL (0-0.7); Eosinophils % (A) 2 %; HCT 37.1 % (34.0-46.0); HGB 11.5 gm/dL (11.4-16.0); Hypochromasia Marked; Lymphocytes # (A) 2.3 k/uL (1.0-4.8); Lymphocytes % (A) 23 %; MCH 21.4 pg (25.0-35.0); MCV 69.2 fL (80.0-100.0); Mean Platelet Volume 7.9; Microcytosis Marked; Monocytes # (A) 0.4 k/uL (0-1.0); Monocytes % (A) 4 %; Neutrophils # (A) 6.6 k/uL (1.3-7.7); Neutrophils % (A) 67 %; Platelet Count 322 k/uL (150-450); RBC 5.36 m/uL (3.80-5.40); RDW 16.2 % (11.5-15.5); WBC 9.8 k/uL (3.8-10.6)
[2020-12-20 09:35] LABS: African American GFR (CKD) >90 (>60 ml/min/1.73 sqM); Anion Gap 8 mmol/L; Blood Urea Nitrogen 8 mg/dL (7-17); Calcium 9.1 mg/dL (8.4-10.2); Carbon Dioxide 25 mmol/L (22-30); Chloride 107 mmol/L (98-107); Glucose 102 mg/dL (74-99); Non-African American GFR(CKD) >90 (>60 ml/min/1.73 sqM); Sodium 140 mmol/L (137-145); Total Protein 7.2 g/dL (6.3-8.2)
[2020-12-20 09:36] LABS: ALT 21 U/L (4-34); AST 24 U/L (14-36); Alkaline Phosphatase 88 U/L (38-126); Total Bilirubin 0.3 mg/dL (0.2-1.3)
[2020-12-20 09:52] LABS: INR 0.9 (<1.2); Partial Thromboplastin Time 22.2 sec (22.0-30.0)
--- NOTE | 2020-12-20 10:01 | XR ---
EXAMINATION TYPE: XR chest 2V DATE OF EXAM: 12/20/2020 COMPARISON: CT chest 02/20/2019 HISTORY: Difficulty breathing TECHNIQUE: Frontal and lateral views of the chest are obtained. FINDINGS: There is no focal air space opacity, pleural effusion, or pneumothorax seen. The cardiac silhouette size is borderline enlarged. The osseous structures are intact. IMPRESSION: Borderline cardiomegaly without an acute process.
[2020-12-20 10:18] LABS: Appearance,Urine Clear (Clear); Bilirubin,Urine Negative (Negative); Blood,Urine Negative (Negative); Color,Urine Yellow; Glucose,Urine (UA) Negative (Negative); Ketones,Urine Negative (Negative); Leukocyte Esterase,Urine Negative (Negative); Nitrite,Urine Negative (Negative); PH, Urine 7.5 (5.0-8.0); Protein,Urine Trace (Negative); Specific Gravity,Urine 1.021 (1.001-1.035); Urobilinogen,Urine <2.0 mg/dL (<2.0)
[2020-12-20] MEDS ORDERED: SODIUM CHLORIDE 0.9% 1,000 ML IV STA (10:23)
--- NOTE | 2020-12-20 10:24 | CT ---
EXAMINATION TYPE: CT brain wo con DATE OF EXAM: 12/20/2020 COMPARISON: None HISTORY: weakness CT DLP: 1055.4 mGycm. Automated Exposure Control for Dose Reduction was Utilized. TECHNIQUE: CT scan of the head is performed without contrast. FINDINGS: There is no acute intracranial hemorrhage, mass effect, or midline shift identified. The ventricles and sulci are within normal limits in size. The globes are intact and the visualized sin uses are clear. IMPRESSION: No acute intracranial hemorrhage, mass effect, or midline shift is seen.
[2020-12-20 10:38] LABS: Amphetamine Screen,Urine Not Detected (NotDetected); Barbiturate Screen,Urine Not Detected (NotDetected); Benzodiazepines Screen,Urine Not Detected (NotDetected); Cocaine Screen,Urine Not Detected (NotDetected); Methadone Screen, Urine Not Detected (NotDetected); Opiate Screen,Urine Not Detected (NotDetected); Oxycodone Screen, Urine Not Detected (NotDetected); Phencyclidine Screen,Urine Not Detected (NotDetected); Tricyclic Antidepressant,Urine Not Detected (NotDetected); Urn Cannabinoid Scrn Detected (NotDetected)
[2020-12-20] MEDS ORDERED: ONDANSETRON 4 MG/2 ML VIAL IVP PRN (11:39)
[2020-12-20] MEDS ORDERED: NALOXONE 0.4 MG/ML 1 ML VIAL IV PRN (11:39)
[2020-12-20] MEDS ORDERED: SODIUM CHLORIDE 0.9% 1,000 ML IV SCH (11:45)
[2020-12-20] MEDS ORDERED: ACETAMINOPHEN TAB 325 MG TAB PO STA (11:54)
[2020-12-20] MEDS ORDERED: ASPIRIN-ACET-CAFF 250-250-65MG 1 EACH TAB PO STA (15:16)
--- NOTE | 2020-12-20 18:25 | P.HPIM ---
History of Present Illness H&P Date: 12/20/20 Chief Complaint: Shortness of breath 30 year-old female patient presents to the emergency department today for evaluation of shortness of breath, tongue swelling, and body aches. She states she woke with symptoms this morning. Feels like she cannot catch her breath. Denies any chest pain. States her whole body hurts and is achy. States that she has woke from sleep with tongue swelling in the past. Denies any leg swelling or pain. Denies recent travel. Denies current use of control. Does smoke cigarettes. Denies fever or chills. Denies any cough or congestion. Denies any recent trauma or head injury. Patient denies any recent rash, abdominal pain, nausea, vomiting, diarrhea, constipation, back pain, numbness, tingling, dizziness, weakness, hematuria, dysuria, urinary urgency, urinary frequency, headache, visual changes, or any other complaints. Denies chance of . Workup in ED including an EKG reveals normal sinus rhythm with marked sinus arrhythmia; labs reveals CBC white blood count 9.8, hemoglobin 11.5, platelet of 322; sodium 140, potassium 4.0, BUN/creatinine of 8/0.75; elevated lactic acid level of 2.4; urine drug screen is positive for marijuana Evaluation in ED revealed traumatic injury to the tongue CT of the brain is negative for intracranial hemorrhage, mass effect or midline shift and patient is admitted to the hospital for concern about possible seizure activity Review of Systems REVIEW OF SYSTEMS: CONSTITUTIONAL: No fever, no malaise, no fatigue. HEENT: No recent visual problems or hearing problems. Denied any sore throat. CARDIOVASCULAR: No chest pain, orthopnea, PND, no palpitations, no syncope. PULMONARY: No shortness of breath, no cough, no hemoptysis. GASTROINTESTINAL: No diarrhea, no nausea, no vomiting, no abdominal pain. NEUROLOGICAL: No headaches, no weakness, no numbness. HEMATOLOGICAL: Denies any bleeding or petechiae. GENITOURINARY: Denies any burning micturition, frequency, or urgency. MUSCULOSKELETAL/RHEUMATOLOGICAL: Denies any joint pain, swelling, or any muscle pain. ENDOCRINE: Denies any polyuria or polydipsia. The rest of the 14-point review of systems is negative. Past Medical History Past Medical History: Asthma, Blood Disorder, GERD/Reflux Additional Past Medical History / Comment(s): Exercise Induced Asthma 2009. Anemia. Rt breast mass, tender from recent biopsy. History of Any Multi-Drug Resistant Organisms: MRSA Date of last positivie culture/infection: 2011 MDRO Source:: throat Past Surgical History: Orthopedic Surgery, Tonsillectomy Additional Past Surgical History / Comment(s): Exc cyst right wrist. Past Anesthesia/Blood Transfusion Reactions: No Reported Reaction Past Psychological History: Depression Smoking Status: Current every day smoker Past Alcohol Use History: Occasional Past Drug Use History: None Reported - Past Family History Father Family Medical History: Cancer, Deep Vein Thrombosis (DVT) Additional Family Medical History / Comment(s): Renal CA Medications and Allergies Home Medications Medication Instructions Recorded Confirmed Type Melatonin 3 mg PO HS PRN 02/14/19 12/20/20 History Famotidine [Pepcid AC] 10 mg PO BID PRN 12/20/20 12/20/20 History Allergies Allergy/AdvReac Type Severity Reaction Status Date / Time Sulfa (Sulfonamide Allergy Unknown Rash/Hives Verified 12/20/20 11:21 Antibiotics) Physical Exam Vitals: Vital Signs Temp Pulse Resp BP Pulse Ox 12/20/20 14:11 73 18 112/60 98 12/20/20 11:14 18 12/20/20 08:43 97.6 F 103 H 18 132/90 95 Intake and Output 12/19/20 12/20/20 12/20/20 22:59 06:59 14:59 Other: Weight 136.078 kg - Constitutional General appearance: Present: average body habitus, cooperative, no acute distress - EENT Eyes: Present: anicteric sclerae, EOMI, PERRLA, normal appearance ENT: Present: hearing grossly normal, normal oropharynx Ears: bilateral: normal - Neck Neck: Present: normal ROM. Absent: lymphadenopathy, rigidity, thyromegaly Carotids: negative: bruit present Thyroid: bilateral: normal size, negative: enlarged, nodule - Respiratory Respiratory: bilateral: CTA, negative: rales, rhonchi, wheezing - Cardiovascular Rhythm: regular Heart sounds: normal: S1, S2 Abnormal Heart Sounds: Absent: systolic murmur, diastolic murmur - Gastrointestinal General gastrointestinal: Present: normal bowel sounds, soft. Absent: distended, organomegaly, tenderness - Genitourinary Genitourinary Comment(s): deferred - Integumentary Integumentary: Present: normal turgor. Absent: jaundiced, rash, ulcer - Neurologic Neurologic: Present: CNII-XII intact. Absent: focal deficits - Musculoskeletal Musculoskeletal: Present: gait normal, strength equal bilaterally - Psychiatric Psychiatric: Present: A&O x's 3, appropriate affect, intact judgment & insight Results CBC & Chem 7: 12/20/20 09:15 12/20/20 09:15 Labs: Abnormal Lab Results - Last 24 Hours (Table) 12/20/20 12/20/20 12/20/20 Range/Units 09:15 09:15 09:15 MCV 69.2 L (80.0-100.0) fL MCH 21.4 L (25.0-35.0) pg RDW 16.2 H (11.5-15.5) % D-Dimer 0.65 H (<0.60) mg/L FEU Glucose 102 H (74-99) mg/dL Plasma Lactic Acid [place] (0.7-2.0) mmol/L Urine Protein (Negative) U Marijuana (THC) Screen (NotDetected) 12/20/20 12/20/20 12/20/20 Range/Units 09:15 09:15 09:15 MCV (80.0-100.0) fL MCH (25.0-35.0) pg RDW (11.5-15.5) % D-Dimer (<0.60) mg/L FEU Glucose (74-99) mg/dL Plasma Lactic Acid [place] 2.4 H* (0.7-2.0) mmol/L Urine Protein Trace H (Negative) U Marijuana (THC) Screen Detected H (NotDetected) Assessment and Plan Assessment: 1. Acute encephalopathy with lactic acidosis; possible seizure activity - Patient will be admitted for continuous neuro monitoring; continue with seizure precautions - CT of the head was reviewed and discussed with patient; await neurology evaluation and further recommendations 2. Lactic acidosis; IV fluid hydration with normal saline at rate of 75 mL an hour; we will monitor and trend lactic acid levels 3. Substance abuse; urine drug screen is positive for marijuana; counseling done 4. Gastroesophageal reflux disease; Protonix 40 mg daily DVT prophylaxis; SCDs CODE STATUS; full code
--- NOTE | 2020-12-20 19:10 | P.CNNES ---
History of Present Illness Consult date: 12/20/20 Requesting physician: Glen Marcos Reason for Consult: Acute encephalopathy, tongue biting concern for seizure History of Present Illness: This is a 30-year-old woman history of right breast fibroadenoma (2019), chronic anemia, GERD who presented emergency department after having an episode of tongue bite and generalized body aches. Patient is accompanied with her mother. She stated that she woke up today with the both side of her tongue bitten and she felt extreme generalized body ache and felt she was in a panic state she did not know what transpired. She denied any urinary, bowel incontinence. Also noticed that she had a headache upon waking up in the bilateral frontal region and feels like a pressure and stated it was 6 out of 10. Denies any photophobia photophobia denies of any nausea or vomiting.. He denied any focal weakness, any difficulty getting her words out, any difficulty swallowing, any numbness or tingling. She said that she slept alone. She denies of any fever. She stated that she bit her tongue about 6-8 month ago upon waking up as well but she stated that she was not as severe feeling with generalized body aches and did not have any urinary or bowel incontinence. She denies any history of seizures in the past. Patient does smoke 1/2 pack a day for years. She socially drinks alcohol. She denies any illicit drug use. Of note patient stated that the she had the right breast mass and she had a biopsy performed (on 02/16/2019) by Dr. 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 She said after the surgery both her eyes were shot read and that she stated that she had imaging and she thinks he had MRI and it was negative. She said the prior to the surgery and she had an eye examination and her eye pressure was normal but since the the surgery after it after seeing an student development specialist that she was told that her pressure was elevated. Episode lasted for 1 month. Then about once a month she would have episodes of confusion in which she will go up to the server cashier to pay for her gas and she would have word finding difficulty and that she was told by friends that she was in daze. Also patient stated that the she is having enlarged lymph nodes and she saw an ENT and the she had some imaging it was told nothing concerning. Regarding her history per the mother she stated that the patient was a product of term, normal vaginal delivery, no complication. As stated above patient does not have any history of seizures. She denied that her boyfriend the complaint that she ever had any jerking episodes while asleep at. There is no family history of seizures. Father does have history of renal cancer that metastasized. Some of the workup in the hospital consisted of Initial vital signs his blood pressure of 132/90, heart rate of 103, respiratory of 18, temperature of 97.6 Fahrenheit oral pulse ox of 95% room air. CBC with differential is the MCV 69 and the RDW 16.2. Hemoglobin is 11.5 hematocrit 37.1. Blood cell is 9.8 thousand which is considered within normal limits. Plasma lactic acid is 2.4 which is elevated otherwise the rest of the chemistry panel is unremarkable. The initial serum glucose is 102 which is not remarkabl e. CT of the head is reported as no acute intracranial hemorrhage, mass effect or midline shift is seen. Past Medical History Past Medical History: Asthma, Blood Disorder, GERD/Reflux Additional Past Medical History / Comment(s): Exercise Induced Asthma 2009. Anemia. Rt breast mass, tender from recent biopsy. History of Any Multi-Drug Resistant Organisms: MRSA Date of last positivie culture/infection: 2011 MDRO Source:: throat Past Surgical History: Orthopedic Surgery, Tonsillectomy Additional Past Surgical History / Comment(s): Exc cyst right wrist. Past Anesthesia/Blood Transfusion Reactions: No Reported Reaction Past Psychological History: Depression Smoking Status: Current every day smoker Past Alcohol Use History: Occasional Past Drug Use History: None Reported - Past Family History Father Family Medical History: Cancer, Deep Vein Thrombosis (DVT) Additional Family Medical History / Comment(s): Renal CA Medications and Allergies Home Medications Medication Instructions Recorded Confirmed Type Melatonin 3 mg PO HS PRN 02/14/19 12/20/20 History Famotidine [Pepcid AC] 10 mg PO BID PRN 12/20/20 12/20/20 History Allergies Allergy/AdvReac Type Severity Reaction Status Date / Time Sulfa (Sulfonamide Allergy Unknown Rash/Hives Verified 12/20/20 11:21 Antibiotics) Physical Examination - Vital Signs Vital Signs: Vital Signs Temp Pulse Resp BP Pulse Ox 12/20/20 16:08 81 18 107/59 98 12/20/20 14:11 73 18 112/60 98 12/20/20 11:14 18 12/20/20 08:43 97.6 F 103 H 18 132/90 95 Intake and Output 12/20/20 12/20/20 12/20/20 06:59 14:59 22:59 Other: Weight 136.078 kg GENERAL: The patient is 30-year-old woman that is morbid obese, lying in bed and is not in acute distress. CHEST: The heart rate is regular rate rhythm. No murmurs to auscultation. LUNG: Clear to auscultation bilaterally no wheezing noted throughout. Not labored breathing. ABDOMEN/GI: Bowel sounds present in all 4 quadrants. No tenderness to palpation throughout. NEUROLOGICAL: Higher mental function: The patient is awake, alert, oriented to self, place and time. Patient is following commands. No aphasia and no neglect. Cranial nerves: The pupils are round, equal and reactive to light and accommodation. Visual villagran are full to confrontation throughout. Extraocular movement is intact no nystagmus is noted. Facial sensation is normal to touch throughout. The facial strength is normal throughout. Hearing is normal bilaterally to hand rub. Tongue is midline and moved [id number] without any difficulty. Has tongue bite over bilateral anterior/lateral side. No dysarthria is noted. Shoulder shrug is normal bilaterally. Motor: Gait is deferred. The strength is 5 over 5 throughout. Normal tone and bulk. Cerebellum: Normal finger to nose heel to chin bilaterally. Sensation: Sensation is normal to touch throughout. Reflexes (right/left): Brachioralialis and Ankles are 2+. Otherwise rest were hard to assess because of her body habitus. Plantars are downgoing bilaterally. Results AST is 24 and ALT of 21 which is considered within normal limits. Calcium is 9.1 and the sodium is 140 which is closer within normal limits. UDS is positive for THC. Urinalysis is negative for urinary tract infection. Paredes virus PCR was not detected His x-rays reported as borderline cardiomegaly without acute process - Laboratory Findings CBC and BMP: 12/20/20 09:15 12/20/20 09:15 Abnormal Lab Findings: Abnormal Labs 12/20/20 12/20/20 12/20/20 09:15 09:15 09:15 MCV 69.2 L MCH 21.4 L RDW 16.2 H D-Dimer 0.65 H Glucose 102 H Plasma Lactic Acid [place] Urine Protein U Marijuana (THC) Screen 12/20/20 12/20/20 12/20/20 09:15 09:15 09:15 MCV MCH RDW D-Dimer Glucose Plasma Lactic Acid [place] 2.4 H* Urine Protein Trace H U Marijuana (THC) Screen Detected H Assessment and Plan Assessment: * Acute Episode of tongue bite with generalized weakness and confusion with elevated lactic acid (who had previous episode of tongue bite about 6-8 months ago and episodes of transient confusion once a month for few years and was told she was in daze): Seem concerning for seizure * Right breast fibroadenoma (2019) * Chronic anemia * History of GERD * Morbid obesity * Nicotine use (05/03 PPD) Plan: * I notified the patient about my concern about a seizure. Notified her that I would like to get MRI of the brain as well as EEG. But since there is no techs over the weekend and has to stay here till Tuesday, then she would like to get it as outpatient. * I wrote her a prescription for 2 and 1/2 hour ambulatory EEG, MRI of the brain with and without as well as his neurology consult referral script as outpatient (recommend to follow-up within 1-2 weeks). * Patient wants still hold off on any antiepileptic drug until her seizure diagnosis is confirmed with Imaging and EEG. * She was counseled on tobacco cessation. * We'll defer the rest of medical measure to primary team. Because of concern of seizure, Patient was notified to avoid driving for 6 month per [place] DMV law. The plan is discussed with the patient and her mother who is at bedside. Thank you for the consultation. She is clear from neurological stand point. Manolo Zaidi MD Neuro-Hospitalist Time with Patient: Greater than 30
[2020-12-20 19:22] VITALS: BP 115/65; PULSE 78; RESP 17; TEMP 98.1
== END 2020-12-20 19:43 | disposition home or self-care (01) ==
LOC: EC 08:42 → 3SCARD 11:39
PROVIDERS: ADMIT Internal Medicine; ATTEND Internal Medicine
DX: G93.40 Encephalopathy, unspecified (principal); E87.2 Acidosis; R22.0 Localized swelling, mass and lump, head; R23.3 Spontaneous ecchymoses; F12.10 Cannabis abuse, uncomplicated; Z71.51 Drug abuse counseling and surveillance of drug abuser; Z20.822 Contact with and (suspected) exposure to COVID-19; R51.9 Headache, unspecified; K21.9 Gastro-esophageal reflux disease without esophagitis; E66.01 Morbid (severe) obesity due to excess calories; Z68.42 Body mass index [BMI] 45.0-49.9, adult; F17.210 Nicotine dependence, cigarettes, uncomplicated; J45.909 Unspecified asthma, uncomplicated; D64.9 Anemia, unspecified; F32.9 Major depressive disorder, single episode, unspecified; D24.1 Benign neoplasm of right breast; Z79.899 Other long term (current) drug therapy; Z88.2 Allergy status to sulfonamides; Z86.14 Personal history of Methicillin resistant Staphylococcus aureus infection; Z80.51 Family history of malignant neoplasm of kidney; Z83.2 Family history of diseases of the blood and blood-forming organs and certain disorders involving the immune mechanism
CPT/HCPCS: 99285; 96360; 96361; 36415; 93005; 85379; 80053; 83605; 84484; 85025; 85610; 85730; 81003; 81025; 80306; 87635; 71046; 70450; G0378

== ENCOUNTER → 2020-12-23 | Outpatient (CLI) | payer BC | LOC: NEUROMAIN 06:47 | PROVIDERS: ATTEND Student in an Organized Health Care Education/Training Program | DX: G40.909 Epilepsy, unspecified, not intractable, without status epilepticus (principal); Z88.2 Allergy status to sulfonamides | CPT/HCPCS: 95713 ==

== ENCOUNTER 2021-12-02 09:47 | Day surgery (SDC) | payer BC ==
[2021-11-30 15:11] VITALS: BMI 54.9
[~2021-12-02 09:47] MED LIST changes: -DEXAMETHASONE SOD PHOSPHATE 10 MG/ML 1 ML VIAL IV ONE; -FAMOTIDINE 20 MG/2 ML VIAL IV PRN; -HEPARIN SODIUM,PORCINE 5,000 UNIT/ML 1 ML VIAL SQ ONE; +LIDOCAINE 1% (10MG/ML) FOR IV START INTRADERMA PRN; -ONDANSETRON 4 MG/2 ML VIAL IVP ONE; -ONDANSETRON 4 MG/2 ML VIAL IVP PRN; -SCOPOLAMINE 1.5MG/72HR PATCH TRANSDERM ONE
[2021-12-02 10:30] VITALS: TEMP 97.8
[2021-12-02] MEDS ORDERED: KETAMINE 10 MG/ML 20 ML VIAL ONE (11:43)
[2021-12-02] MEDS ORDERED: PROPOFOL 10 MG/ML 20 ML VIAL IV ONE (11:43)
[2021-12-02] MEDS ORDERED: LIDOCAINE 2% INJ 20 MG/ML (2 ML VIAL) ONE (11:43)
[2021-12-02] MEDS ORDERED: MIDAZOLAM 2 MG/2 ML VIAL ONE (11:43)
--- NOTE | 2021-12-02 12:01 | P.PCN ---
Date of Procedure: 12/02/21 Procedure(s) Performed: BRIEF HISTORY: Patient is a 31-year-old, pleasant, white female scheduled for an upper endoscopy as a part of evaluation of long standing history of GERD and intermittent dysphagia to solids. She is currently on Pepcid 20 mg once daily. PROCEDURE PERFORMED: Esophagogastroduodenoscopy with biopsy. PREOPERATIVE DIAGNOSIS: Long-standing history of GERD and intermittent dysphagia to solids. IV sedation per anesthesia. PROCEDURE: After informed consent was obtained, the patient was brought into the endoscopy unit. IV sedation was administered by Anesthesia under continuous monitoring. Initially the Olympus GIF-140 video endoscope was inserted into the mouth. Esophagus intubated without any difficulty. It was gradually advanced into the stomach and duodenum and carefully examined. The bulb and the second part of the duodenum appeared normal. The scope at this time was withdrawn to the stomach, adequately insufflated with air, and upon careful examination, mucosa of the antrum, had mild gastritis and biopsies were done from this area. The body, cardia and the fundus appeared normal. The scope was then withdrawn into the esophagus. The GE junction was located at 39 cm from the incisors. There were linear erosions in the distal esophagus consistent with LA grade B reflux esophagitis. The rest of the esophagus appeared normal. There were no erosions or ulcerations seen and the patient tolerated the procedure well. IMPRESSION: 1. Linear erosions in the distal esophagus consistent with LA grade B reflux esophagitis. 2. Mild antral gastritis. RECOMMENDATIONS: The findings of this examination were discussed with the patient as well as her family. She was advised to follow with the biopsy results. I suggested that she increase the Pepcid to 20 mg twice daily and follow antireflux measures..
[2021-12-02] MEDS ORDERED: IV FLUID CONTINUATION 1,000 ML IV ONE (12:03)
[2021-12-02 12:24] VITALS: BP 122/79; PULSE 64; RESP 20
== END 2021-12-02 12:35 | disposition home or self-care (01) ==
LOC: ORWHC2ENDO 09:47
PROVIDERS: ATTEND Internal Medicine Gastroenterology
DX: K29.50 Unspecified chronic gastritis without bleeding (principal); K21.9 Gastro-esophageal reflux disease without esophagitis; G47.33 Obstructive sleep apnea (adult) (pediatric); Z88.2 Allergy status to sulfonamides; E66.01 Morbid (severe) obesity due to excess calories; Z68.43 Body mass index [BMI] 50.0-59.9, adult; Z79.899 Other long term (current) drug therapy; Z87.891 Personal history of nicotine dependence; Z80.51 Family history of malignant neoplasm of kidney
CPT/HCPCS: 81025; 88305; 43239; J2250; J2704; J2001

== ENCOUNTER → 2021-12-11 | Outpatient (CLI) | payer BC ==
--- NOTE | 2021-12-12 09:23 | US ---
EXAMINATION TYPE: US thyroid st tissue head/neck DATE OF EXAM: 12/11/2021 COMPARISON: NONE CLINICAL HISTORY: 31-year-old female R44.8 SYMPTOMS AND SIGNS W GENERAL SENSATIONS AND. Patient feels like she is choking on food. TECHNIQUE: Multiple sonographic images of the thyroid gland are obtained. FINDINGS: GLAND SIZE: Right Lobe: 5.0 x 1.4 x 1.5 cm Overall Parenchyma: homogenous Left Lobe: 4.9 x 1.5 x 1.9 cm Overall Parenchyma: homogeneous Isthmus Thickness: 0.5 cm NODULES RIGHT: # of nodules measured on right: 0 LEFT: # of nodules measured on left: 0 ISTHMUS: # of nodules measured in the isthmus: 0 Bilateral neck scanned, no evidence of lymphadenopathy. Curriculum Assistant Principal notes: Multiple images were obtained over patient's left lateral neck where she feels odd sensations, no definite abnormality noted. IMPRESSION: 1. Borderline thyromegaly. No discrete nodules. 2. Additional scanning along the left lateral neck at the patient's symptomatic site. No discrete son ographic abnormality is seen.
== END | disposition home or self-care (01) ==
LOC: RADUSWWP 16:02
PROVIDERS: ATTEND Family Medicine
DX: E04.9 Nontoxic goiter, unspecified (principal); R44.8 Other symptoms and signs involving general sensations and perceptions
CPT/HCPCS: 76536

== ENCOUNTER 2022-01-23 23:02 | Emergency (ER) | payer BC ==
[2022-01-23] MEDS ORDERED: SODIUM CHLORIDE 0.9% 500 ML 500 ML IV ONE (23:26)
--- NOTE | 2022-01-23 23:37 | ED ---
Altered Mental Status HPI - General Stated Complaint: weakness Time Seen by Provider: 01/23/22 23:04 Source: patient, family Mode of arrival: EMS Limitations: no limitations - History of Present Illness Initial Comments: This patient is a 31-year-old woman presents after she had an episode of not feeling right at home. The patient states she has had a bit of bitemporal headache for most of the day, she has been feeling like she has some numbness to the right side of her arm and leg. Patient states she was feeling dizzy. She is coming by her sister who states that she had a period of time when she was not able to respond verbally to questions. The patient did not have loss consciousness, but was not able to speak. There were no tonic-clonic movements. Patient does had history of nocturnal seizures, but not having had any seizure while awake. MD Complaint: altered mental status -: hour(s) Associated Symptoms: headaches - Related Data Home Medications Medication Instructions Recorded Confirmed FLUoxetine HCL [PROzac] 20 mg PO HS 11/30/21 12/02/21 Famotidine [Pepcid] 20 mg PO HS 11/30/21 12/02/21 Ferrous Sulfate [Feosol] 325 mg PO HS 11/30/21 12/02/21 Allergies Allergy/AdvReac Type Severity Reaction Status Date / Time Sulfa (Sulfonamide Allergy Unknown Rash/Hives Verified 01/23/22 23:36 Antibiotics) Review of Systems ROS Statement: Those systems with pertinent positive or pertinent negative responses have been documented in the HPI. ROS Other: All systems not noted in ROS Statement are negative. Constitutional: Reports: chills. Denies: fever, weakness Eyes: Denies: eye pain, vision change ENT: Denies: congestion Respiratory: Denies: cough, dyspnea Cardiovascular: Denies: chest pain, palpitations, syncope Gastrointestinal: Denies: abdominal pain, vomiting Genitourinary: Denies: dysuria Skin: Denies: rash Neurological: Reports: headache, numbness, paresthesias. Denies: weakness Past Medical History Past Medical History: Asthma, GERD/Reflux, Sleep Apnea/CPAP/BIPAP Additional Past Medical History / Comment(s): Exercise Induced Asthma, Anemia, "episodes in the night-waking up with bleeding tongue and gasps for air and urinates on self and lethargic" has had for over a year. states PCP dx with SVT but cardioligist is not sure but is testing, hiatal hernia, History of Any Multi-Drug Resistant Organisms: MRSA Date of last positivie culture/infection: 2011 MDRO Source:: throat Past Surgical History: Breast Surgery, Orthopedic Surgery, Tonsillectomy Additional Past Surgical History / Comment(s): Exc cyst right wrist. rt breast lumpectomy Past Anesthesia/Blood Transfusion Reactions: No Reported Reaction Smoking Status: Former smoker - Past Family History Father Family Medical History: Cancer Additional Family Medical History / Comment(s): Renal CA General Exam General appearance: alert, in no apparent distress Head exam: Present: atraumatic, normocephalic Eye exam: Present: normal appearance, PERRL, EOMI. Absent: scleral icterus, conjunctival injection, nystagmus Neck exam: Present: normal inspection, full ROM. Absent: meningismus Respiratory exam: Present: normal lung sounds bilaterally. Absent: respiratory distress, wheezes, rales, rhonchi, stridor Cardiovascular Exam: Present: regular rate, normal rhythm, normal heart sounds. Absent: systolic murmur, diastolic murmur, rubs, gallop GI/Abdominal exam: Present: soft. Absent: distended, tenderness, guarding, r ebound, rigid, mass Extremities exam: Present: normal inspection, normal capillary refill. Absent: pedal edema, calf tenderness Back exam: Present: normal inspection. Absent: CVA tenderness (R), CVA tenderness (L) Neurological exam: Present: alert, oriented X3, CN II-XII intact. Absent: motor sensory deficit Skin exam: Present: warm, dry, intact, normal color. Absent: rash Course Vital Signs 01/23/22 01/23/22 23:37 23:55 Temperature 98.1 F Pulse Rate 96 121 H Respiratory 16 26 H Rate Blood Pressure 134/74 139/86 O2 Sat by Pulse 100 100 Oximetry Medical Decision Making - Lab Data Result diagrams: 01/23/22 23:30 01/23/22 23:29 Lab Results 01/23/22 01/23/22 01/23/22 Range/Units 23:29 23:29 23:30 WBC 9.8 (3.8-10.6) k/uL RBC 4.97 (3.80-5.40) m/uL Hgb 11.4 (11.4-16.0) gm/dL Hct 38.2 (34.0-46.0) % MCV 76.8 L (80.0-100.0) fL MCH 22.9 L (25.0-35.0) pg MCHC 29.9 L (31.0-37.0) g/dL RDW 14.2 (11.5-15.5) % Plt Count 255 (150-450) k/uL MPV 8.5 Neutrophils % 66 % Lymphocytes % 25 % Monocytes % 5 % Eosinophils % 2 % Basophils % 1 % Neutrophils # 6.4 (1.3-7.7) k/uL Lymphocytes # 2.4 (1.0-4.8) k/uL Monocytes # 0.5 (0-1.0) k/uL Eosinophils # 0.2 (0-0.7) k/uL Basophils # 0.1 (0-0.2) k/uL Hypochromasia Moderate PT (9.0-12.0) sec INR (<1.2) APTT (22.0-30.0) sec Sodium 138 (137-145) mmol/L Potassium 4.2 (3.5-5.1) mmol/L Chloride 104 (98-107) mmol/L Carbon Dioxide 21 L (22-30) mmol/L Anion Gap 13 mmol/L BUN 12 (7-17) mg/dL Creatinine 0.83 (0.52-1.04) mg/dL Est GFR (CKD-EPI)AfAm >90 (>60 ml/min/1.73 sqM) Est GFR (CKD-EPI)NonAf >90 (>60 ml/min/1.73 sqM) Glucose 110 H (74-99) mg/dL Calcium 8.8 (8.4-10.2) mg/dL Total Bilirubin 0.4 (0.2-1.3) mg/dL AST 30 (14-36) U/L ALT 22 (4-34) U/L Alkaline Phosphatase 114 (38-126) U/L Troponin I <0.012 (0.000-0.034) ng/mL Total Protein 7.2 (6.3-8.2) g/dL Albumin 4.0 (3.5-5.0) g/dL Urine Color Urine Appearance (Clear) Urine pH (5.0-8.0) Ur Specific [place] (1.001-1.035) Urine Protein (Negative) Urine Glucose (UA) (Negative) Urine Ketones (Negative) Urine Blood (Negative) Urine Nitrite (Negative) Urine Bilirubin (Negative) Urine Urobilinogen (<2.0) mg/dL Ur Leukocyte Esterase (Negative) Urine RBC (0-5) /hpf Urine WBC (0-5) /hpf Urine Mucus (None) /hpf 01/23/22 01/24/22 Range/Units 23:30 00:10 WBC (3.8-10.6) k/uL RBC (3.80-5.40) m/uL Hgb (11.4-16.0) gm/dL Hct (34.0-46.0) % MCV (80.0-100.0) fL MCH (25.0-35.0) pg MCHC (31.0-37.0) g/dL RDW (11.5-15.5) % Plt Count (150-450) k/uL MPV Neutrophils % % Lymphocytes % % Monocytes % % Eosinophils % % Basophils % % Neutrophils # (1.3-7.7) k/uL Lymphocytes # (1.0-4.8) k/uL Monocytes # (0-1.0) k/uL Eosinophils # (0-0.7) k/uL Basophils # (0-0.2) k/uL Hypochromasia PT 10.0 (9.0-12.0) sec INR 0.9 (<1.2) APTT 24.4 (22.0-30.0) sec Sodium (137-145) mmol/L Potassium (3.5-5.1) mmol/L Chloride (98-107) mmol/L Carbon Dioxide (22-30) mmol/L Anion Gap mmol/L BUN (7-17) mg/dL Creatinine (0.52-1.04) mg/dL Est GFR (CKD-EPI)AfAm (>60 ml/min/1.73 sqM) Est GFR (CKD-EPI)NonAf (>60 ml/min/1.73 sqM) Glucose (74-99) mg/dL Calcium (8.4-10.2) mg/dL Total Bilirubin (0.2-1.3) mg/dL AST (14-36) U/L ALT (4-34) U/L Alkaline Phosphatase (38-126) U/L Troponin I (0.000-0.034) ng/mL Total Protein (6.3-8.2) g/dL Albumin (3.5-5.0) g/dL Urine Color Red Urine Appearance Cloudy H (Clear) Urine pH 6.0 (5.0-8.0) Ur Specific [place] 1.024 (1.001-1.035) Urine Protein 2+ H (Negative) Urine Glucose (UA) Negative (Negative) Urine Ketones Trace H (Negative) Urine Blood Large H (Negative) Urine Nitrite Negative (Negative) Urine Bilirubin Negative (Negative) Urine Urobilinogen <2.0 (<2.0) mg/dL Ur Leukocyte Esterase Moderate H (Negative) Urine RBC >182 H (0-5) /hpf Urine WBC 17 H (0-5) /hpf Urine Mucus Few H (None) /hpf Disposition Clinical Impression: Altered mental status Disposition: HOME SELF-CARE Condition: Good Instructions (If sedation given, give patient instructions): Dizziness (ED) Is patient prescribed a controlled substance at d/c from ED?: No Referrals: Dudley Lopes MD [Primary Care Provider] - 1-2 days Jesus Crowder MD [REFERRING] - 1-2 days
[2022-01-24 00:11] LABS: Basophils # (A) 0.1 k/uL (0-0.2); Basophils % (A) 1 %; Eosinophils # (A) 0.2 k/uL (0-0.7); Eosinophils % (A) 2 %; HCT 38.2 % (34.0-46.0); HGB 11.4 gm/dL (11.4-16.0); Hypochromasia Moderate; Lymphocytes # (A) 2.4 k/uL (1.0-4.8); Lymphocytes % (A) 25 %; MCH 22.9 pg (25.0-35.0); MCHC 29.9 g/dL (31.0-37.0); MCV 76.8 fL (80.0-100.0); Mean Platelet Volume 8.5; Monocytes # (A) 0.5 k/uL (0-1.0); Monocytes % (A) 5 %; Neutrophils # (A) 6.4 k/uL (1.3-7.7); Neutrophils % (A) 66 %; Platelet Count 255 k/uL (150-450); RBC 4.97 m/uL (3.80-5.40); RDW 14.2 % (11.5-15.5); WBC 9.8 k/uL (3.8-10.6)
[2022-01-24 00:21] LABS: ALT 22 U/L (4-34); AST 30 U/L (14-36); African American GFR (CKD) >90 (>60 ml/min/1.73 sqM); Alkaline Phosphatase 114 U/L (38-126); Anion Gap 13 mmol/L; Blood Urea Nitrogen 12 mg/dL (7-17); Calcium 8.8 mg/dL (8.4-10.2); Carbon Dioxide 21 mmol/L (22-30); Chloride 104 mmol/L (98-107); Glucose 110 mg/dL (74-99); Non-African American GFR(CKD) >90 (>60 ml/min/1.73 sqM); Sodium 138 mmol/L (137-145); Total Bilirubin 0.4 mg/dL (0.2-1.3); Total Protein 7.2 g/dL (6.3-8.2)
[2022-01-24 00:23] LABS: INR 0.9 (<1.2); Partial Thromboplastin Time 24.4 sec (22.0-30.0)
--- NOTE | 2022-01-24 00:30 | XR ---
EXAMINATION TYPE: XR chest 1V portable DATE OF EXAM: 01/24/2022 COMPARISON: 12/20/2020 HISTORY: Altered mental status TECHNIQUE: Single view FINDINGS: Heart is normal. Lungs are clear of infiltrate. No heart failure. There are no hilar masses . Bony thorax is intact IMPRESSION: No active cardiopulmonary disease. Normal heart. No change.
--- NOTE | 2022-01-24 00:32 | CT ---
EXAMINATION TYPE: CT brain wo con DATE OF EXAM: 01/24/2022 COMPARISON: 12/20/2020 HISTORY: VILLALOBOS CT DLP: 1102.2 mGycm Automated exposure control for dose reduction was used. Ventricles and sulci appear normal. There is no mass effect or midline shift. No sign of intracranial hemorrhage. The calvarium is intact. There is normal aeration of the mastoid sinuses. IMPRESSION: Negative unenhanced head CT scan. No change.
[2022-01-24 00:36] LABS: Potassium 4.2 mmol/L (3.5-5.1)
[2022-01-24 00:49] LABS: Appearance,Urine Cloudy (Clear); Bilirubin,Urine Negative (Negative); Blood,Urine Large (Negative); Color,Urine Red; Glucose,Urine (UA) Negative (Negative); Ketones,Urine Trace (Negative); Leukocyte Esterase,Urine Moderate (Negative); Mucus,Urine Few /hpf; Nitrite,Urine Negative (Negative); Protein,Urine 2+ (Negative); RBC,Urine >182 /hpf (0-5); Specific Gravity,Urine 1.024 (1.001-1.035); Urobilinogen,Urine <2.0 mg/dL (<2.0); WBC,Urine 17 /hpf (0-5)
[2022-01-24 02:17] VITALS: BP 130/79; PULSE 103; RESP 16; TEMP 98.2
== END 2022-01-24 02:17 | disposition home or self-care (01) ==
LOC: EC 23:02
DX: R41.82 Altered mental status, unspecified (principal); J45.909 Unspecified asthma, uncomplicated; K21.9 Gastro-esophageal reflux disease without esophagitis; Z87.891 Personal history of nicotine dependence; Z88.2 Allergy status to sulfonamides; Z79.899 Other long term (current) drug therapy
CPT/HCPCS: 36415; 70450; 71045; 80053; 81001; 84484; 85025; 85610; 85730; 93005; 99285

== ENCOUNTER → 2022-02-17 | Outpatient (CLI) | payer BC ==
--- NOTE | 2022-02-18 06:27 | MR ---
EXAMINATION TYPE: MR brain wo/w con DATE OF EXAM: 02/17/2022 COMPARISON: CT brain January 24, 2022. HISTORY: Seizure. 3.0T Epilepsy protocol. TECHNIQUE: Multiplanar, multisequence images of the brain and brainstem is performed without and with IV contras t, utilizing 13 mL intravenous Gadavist . FINDINGS: Diffusion weighted images demonstrate no evidence of a recent infarct or other diffusion ab normality. There is no extra-axial fluid collection or significant white matter signal abnormality. The ventricular system and cisternal spaces are normal in size and appearance. The brain volume is age appropriate. Hippocampal gyri are symmetric and felt within normal limits. T2 Star weighted image s show no suspicious intraparenchymal blood product. Midline structures demonstrate normal morphology. The craniocervical junction appears within normal limits. Post contrast images demonstrate no abnormal enhancement. The dural venous sinuses appear pa tent. The visualized sinuses are clear and the globes are intact. IMPRESSION: Unremarkable study.
== END | disposition home or self-care (01) ==
LOC: RADMRIMAIN 01-25 17:50
PROVIDERS: ATTEND Psychiatry & Neurology Neurology
DX: R56.9 Unspecified convulsions (principal)
CPT/HCPCS: 70553; A9585

== ENCOUNTER 2022-10-15 14:11 | Emergency (ER) | payer OTHER, BC ==
[2022-10-15 14:27] VITALS: BP 123/85; PULSE 77; RESP 18; TEMP 98.4
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
--- NOTE | 2022-10-15 15:24 | XR ---
EXAMINATION TYPE: XR foot complete LT DATE OF EXAM: 10/15/2022 COMPARISON: NONE HISTORY: Pain TECHNIQUE: Three views are submitted. FINDINGS: The osseous structures are intact. There is no acute fracture or dislocation. Joint spaces are p reserved. Tiny enthesophyte at the Achilles insertion of the calcaneus. IMPRESSION: 1. No acute fracture or dislocation. If symptoms persist, follow-up exam in 7 to 10 days could be ob tained.
--- NOTE | 2022-10-15 15:25 | XR ---
EXAMINATION TYPE: XR ankle complete LT DATE OF EXAM: 10/15/2022 COMPARISON: NONE HISTORY: Pain FINDINGS: Three views of the ankle demonstrate the ankle mortise to be intact and symmetric. The joint spaces are preserved. The osseous structures are intact. Tiny spur involving the Achilles insertion of the calcaneus. IMPRESSION: 1. No definite acute fracture or dislocation, if symptoms persist follow-up study in 7 to 10 days wou ld be suggested.
--- NOTE | 2022-10-15 15:26 | XR ---
EXAMINATION TYPE: XR chest 2V DATE OF EXAM: 10/15/2022 COMPARISON: 01/25/2020 TECHNIQUE: PA and lateral views submitted. HISTORY: Pain FINDINGS: The lungs are clear and there is no pneumothorax, pleural effusion, or focal pneumonia. Heart size normal and no overt failure. Osseous structures demonstrate hypertrophic and degenerative changes of the spine. IMPRESSION: 1. No acute process.
--- NOTE | 2022-10-15 15:28 | XR ---
EXAMINATION TYPE: XR shoulder complete LT DATE OF EXAM: 10/15/2022 COMPARISON: NONE HISTORY: Pain TECHNIQUE: Three views are submitted. FINDINGS: The osseous structures are intact. There is no acute fracture or dislocation. The AC joint is maint ained. IMPRESSION: 1. No acute process.
== END 2022-10-15 16:13 | disposition home or self-care (01) ==
LOC: EC 14:11
DX: R07.89 Other chest pain (principal); J45.909 Unspecified asthma, uncomplicated; F41.9 Anxiety disorder, unspecified; Z87.891 Personal history of nicotine dependence; Z88.2 Allergy status to sulfonamides; Z79.899 Other long term (current) drug therapy; V49.40XA Driver injured in collision with unspecified motor vehicles in traffic accident, initial encounter
CPT/HCPCS: 71046; 99284

== ENCOUNTER → 2023-07-11 | Outpatient (CLI) | payer BC ==
[2023-07-11] MEDS: SODIUM CHLORIDE 0.9% 500 ML 500 ML in EMPTY BAG 1 BAG IV PRN (13:04)
[2023-07-11] MEDS: IRON SUCROSE 200 MG in SODIUM CHLORIDE 0.9% 100 ML IVPB ONE (13:05)
[2023-07-11 13:30] VITALS: BP 120/81; PULSE 81; RESP 16; TEMP 97.6
== END ==
LOC: PROCWHC3 12:38
PROVIDERS: ATTEND Family Medicine
DX: E61.1 Iron deficiency (principal)
CPT/HCPCS: 96365; J1756

== ENCOUNTER → 2024-04-16 | Outpatient (CLI) | payer BC ==
[2024-04-16 14:55] LABS: Basophils # (A) 0.05 X 10*3/uL (0.00-0.10); Basophils % (A) 0.6 %; Eosinophils # (A) 0.14 X 10*3/uL (0.04-0.35); Eosinophils % (A) 1.6 %; HCT 39.9 % (37.2-46.3); Lymphocytes # (A) 2.51 X 10*3/uL (0.90-5.00); Lymphocytes % (A) 29.1 %; MCH 23.8 pg (27.0-32.0); MCHC 30.1 g/dL (32.0-37.0); Mean Platelet Volume 11.8 FL (9.5-12.2); Monocytes # (A) 0.52 X 10*3/uL (0.20-1.00); NRBC Per 100 WBC 0 X 10*3/uL (0.00-0.01); Neutrophils # (A) 5.39 X 10*3/uL (1.80-7.70); Neutrophils % (A) 62.5 %; Platelet Count 323 X 10*3/uL (140-440); RBC 5.05 X 10*6/uL (4.10-5.20); RDW 14.6 % (11.5-14.5); WBC 8.63 X 10*3/uL (4.50-10.00)
[2024-04-16 15:26] LABS: Chol/HDL Ratio 2.68 Ratio; LDL Cholesterol,Calculated 68.4 mg/dL (0.0-131.0)
[2024-04-16 15:27] LABS: % Iron Saturation 14.04 (12.00-45.00); Iron 48 UG/DL (50-170); Magnesium 1.9 mg/dL (1.5-2.4); Total Iron Binding Capacity 342 UG/DL (228-460)
== END | disposition home or self-care (01) ==
LOC: LABWHC1 08:44
PROVIDERS: ATTEND Family Medicine
DX: Z00.00 Encounter for general adult medical examination without abnormal findings (principal); F41.1 Generalized anxiety disorder; D50.9 Iron deficiency anemia, unspecified
CPT/HCPCS: 36415; 80061; 83540; 83550; 83735; 85025